=== PATIENT | female | born 1995 | race Caucasian/White ===

== ENCOUNTER 2022-01-05 22:44 | Emergency (ER) | payer OTHER, SELFPAY ==
[2022-01-05 22:47] VITALS: BP 112/80; PULSE 95; O2SAT 95
[2022-01-05 22:54] VITALS: BP 134/61; PULSE 74; RESP 18; TEMP 36.9; O2SAT 97; BMI 39.0
[2022-01-05 23:07] LABS: MANUAL DIFF FLAG NO
[2022-01-05 23:08] LABS: Basophils Percent Auto 0.5 % (0-2); Eosinophils Absolute Auto 0.4 X10*3/uL (0.0-0.4); Hematocrit 37.9 % (37.0-47.0); Imm Gran Abs Auto 0.02 X10*3/uL (0.00-0.03); Imm Gran Pct Auto 0.3 % (0.0-0.4); Lymphocytes Absolute Auto 3.2 X10*3/uL (1.2-4.9); Lymphocytes Percent Auto 41.8 % (20-40); Mean Corpuscular HGB Conc 34.3 g/dl (31.0-35.0); Mean Corpuscular Hemoglobin 31.2 pg (27.0-33.0); Mean Corpuscular Volume 90.9 fL (80.0-98.0); Mean Platelet Volume 8.9 fL (9.4-12.3); Monocytes Absolute Auto 0.6 X10*3/uL (0.1-1.2); Neutrophils Absolute Auto 3.4 x10*3/uL (2.0-8.3); Neutrophils Percent Auto 44.4 % (45-73); Platelet Count 227 X10*3/uL (160-400); Red Blood Count 4.17 X10*6/uL (4.20-5.50); Red Cell Distribution Width 12.2 % (11.0-16.0); White Blood Count 7.6 X10*3/uL (4.8-10.8)
[2022-01-05 23:14] LABS: Glucose, Whole Blood 104 mg/dL (60-115)
[2022-01-05 23:17] LABS: Appearance Urine Cloudy; Color Urine Yellow; Glucose Urine UA Negative (Negative); Leukocyte Esterase Urine Trace (Negative); Nitrite Urine Negative (Negative); PH 6.5 (5.0-8.0); Specific Gravity - Urine >= 1.030 (1.005-1.025); Urine Blood Negative (Negative); Urine Ketones Trace mg/dL (Negative); Urine Protein Negative (Neg-Trace)
[2022-01-05 23:18] LABS: UPreg QC Valid YES; Urine Pregnancy NEGATIVE (NEGATIVE)
[2022-01-05 23:26] LABS: Alanine Aminotransferase 7 U/L (0-31); Alkaline Phosphatase 63 U/L (39-117); Anion Gap 12 (12-20); Aspartate Amino Transferase 11 U/L (5-31); Bilirubin Direct < 0.2 mg/dL (0.0-0.5); Bilirubin Total 0.2 mg/dL (0.0-1.0); Blood Urea Nitrogen 16 mg/dL (9-16); Calcium 9.3 mg/dL (8.4-10.2); Carbon Dioxide 28 mmol/L (22-29); Chloride 105 mmol/L (96-108); Creatinine Clr Calc Pharmacy 132.3; Estimated Glomerular Filt Rate > 60; Glucose Random 103 mg/dL (60-115); Potassium 4.3 mmol/L (3.3-5.1); Sodium 141 mmol/L (135-145); Total Protein 6.6 g/dL (6.5-8.0)
[2022-01-05 23:31] LABS: Bacteria Urine 4+ (None Seen); Hyaline Casts Urine 0-2 /LPF (0-2); UACC Culture Trigger YES; WBC Urine 21-50 /HPF (0-5)
[2022-01-05 23:35] LABS: Amphetamine Screen Urine Not Detected (Not Detect); Barbiturates, Urine Not Detected (Not Detect); Benzodiazepines Screen Urine Not Detected (Not Detect); Cannabinoid Screen Urine Not Detected (Not Detect); Cocaine Screen Urine Not Detected (Not Detect); Fentanyl, urine Not Detected (Not Detect); Opiate Screen Urine Not Detected (Not Detect); Phencyclidine Screen Urine Not Detected (Not Detect)
[2022-01-06 03:21] VITALS: BP 140/83; PULSE 67; RESP 18; TEMP 36.6; O2SAT 96
--- NOTE | 2022-01-06 07:19 | ED_ITS ---
HPI - Female Genitourinary General Chief complaint: Urogenital-Female Stated complaint: Abd Pain Time Seen by Provider: 01/06/22 07:14 Source: patient Limitations: no limitations History of Present Illness HPI Narrative: The patient presented to the emergency department complaining of cloudy urine frequency or urgency and she is complaining also lower back pain. Denies any fever chills vomiting and diarrhea. She has a history of opioid use disorder, she is on Bactrim x2 days that she is no better. MD elicited complaint: dysuria Onset (ago): day(s) (7) Severity: moderate Female Urogenital Radiation: Non-Radiating Consistency: constant Vaginal discharge: none Vaginal bleeding: none Urinary symptoms: Dysuria, Urgency, Frequency and Foul Smelling Urine Exacerbating factors: none Relieving factors: none Related Data Previous Rx's Medication Instructions Recorded levofloxacin 500 mg tablet 500 mg PO DAILY 3 days #3 tabs 01/06/22 naproxen 500 mg tablet (Naprosyn) 500 mg PO BID PRN PAIN #20 tabs 01/06/22 Allergies Allergy/AdvReac Type Severity Reaction Status Date / Time No Known Allergies Allergy Unverified 02/03/20 18:58 [No Known Allergies*] Review of Systems Constitutional: Constitutional: Reports no additional constitutional complaints Cardiovascular: Cardiovascular: Reports no additional cardiovascular complaints Respiratory: Respiratory: Reports no additional respiratory complaints Gastrointestinal: Gastrointestinal: Denies abdominal pain Genitourinary: Genitourinary: Reports as per HPI [facility] Past Medical History [facility] Narrative: History of opioid use disorder, history of sciatica Social History Social History Advance Directives: Yes Advance Directives Information Provided: Yes Advance Directives on File: No Physical Exam Vital Signs: Vital Signs: Last Vital Signs Temp 97.9 F 01/06/22 03:21 Pulse 67 01/06/22 03:21 Resp 18 01/06/22 03:21 BP 140/83 H 01/06/22 03:21 Pulse Ox 96 01/06/22 03:21 O2 Del Method 01/06/22 03:21 BMI result Body Mass Index 39.0 Const: Other: She is no toxic-appearing she looks well General: cooperative, healthy appearing, comfortable, no acute distress, well developed, alert, awake and Physically active Nutritional Appearance: well nourished Orientation/consciousness: patient oriented x3 HEENT: Head: Yes normal to inspection Face and sinus: Yes normal facial exam Eyes: General: appearance normal, both eyes and all related structures EOM: EOMs intact bilaterally Chest: Chest palpation & inspection: normal inspection of the chest Resp: Effort & Inspection: normal respiratory effort Cardio: Jugular venous distension: no JVD Rate: regular rate Rhythm: regular rhythm GI: Inspection: Yes normal to inspection Palpation (GI): Soft to palpation, nontender and no guarding Skin: General skin exam: no rashes or lesions noted Neuro: General: patient oriented x3 MDM - Female Genitourinary MDM Narrative Medical decision making narrative: Patient is afebrile and nontoxic-appearing ; labs are normal ,she can be discharged home I will chnage Bactrim to Cipro and prescribe naproxen as well of for lower back pain.She is comfortable with the plan of care Lab Data Result diagrams: 01/05/22 23:03 01/05/22 23:03 Labs: Lab Results 01/05/22 01/05/22 01/05/22 Range/Units 22:54 23:03 23:03 WBC 7.6 (4.8-10.8) X10*3/uL RBC 4.17 L (4.20-5.50) X10*6/uL Hgb 13.0 (12.0-16.0) g/dl Hct 37.9 (37.0-47.0) % MCV 90.9 (80.0-98.0) fL MCH 31.2 (27.0-33.0) pg MCHC 34.3 (31.0-35.0) g/dl RDW 12.2 (11.0-16.0) % Plt Count 227 (160-400) X10*3/uL MPV 8.9 L (9.4-12.3) fL Immature Gran % (Auto) 0.3 (0.0-0.4) % Neut % (Auto) 44.4 L (45-73) % Lymph % (Auto) 41.8 H (20-40) % [place] % (Auto) 8.0 (2-11) % Eos % (Auto) 5.0 H (0-4) % Baso % (Auto) 0.5 (0-2) % Lymph # (Auto) 3.2 (1.2-4.9) X10*3/uL Ramsey # (Auto) 0.6 (0.1-1.2) X10*3/uL Eos # (Auto) 0.4 (0.0-0.4) X10*3/uL Baso # (Auto) 0.0 (0.0-0.2) X10*3/uL Abs Immat Gran (auto) 0.02 (0.00-0.03) X10*3/uL Absolute Neuts (auto) 3.4 (2.0-8.3) x10*3/uL Absolute Nucleated RBC 0.000 (0.0-0.012) X10*3/uL Nucleated RBC % (auto) 0.0 (0.0-0.2) /100WBC Sodium 141 (135-145) mmol/L Potassium 4.3 (3.3-5.1) mmol/L Chloride 105 (96-108) mmol/L Carbon Dioxide 28 (22-29) mmol/L Anion Gap 12 (12-20) BUN 16 (9-16) mg/dL Creatinine 0.94 (0.5-1.4) mg/dL Estim Creat Clear Calc 132.3 Estimated GFR > 60 POC Glucose 104 (60-115) mg/dL Random Glucose 103 (60-115) mg/dL Calcium 9.3 (8.4-10.2) mg/dL Total Bilirubin 0.2 (0.0-1.0) mg/dL Direct Bilirubin < 0.2 (0.0-0.5) mg/dL AST 11 (5-31) U/L ALT 7 (0-31) U/L Alkaline Phosphatase 63 (39-117) U/L Total Protein 6.6 (6.5-8.0) g/dL Albumin 4.0 (3.5-5.0) g/dL Urine Color Urine Appearance Urine pH (5.0-8.0) Ur Specific [place] (1.005-1.025) Urine Protein (Neg-Trace) mg/dL Urine Glucose (UA) (Negative) mg/dL Urine Ketones (Negative) mg/dL Urine Blood (Negative) Urine Nitrite (Negative) Ur Leukocyte Esterase (Negative) Urine RBC (0-2) /HPF Urine WBC (0-5) /HPF Ur Squamous Epith Cells (0-2) /HPF Urine Bacteria (None Seen) Hyaline Casts (0-2) /LPF Urine Test (NEGATIVE) Urine Opiates Screen (Not Detect) Urine Fentanyl Screen (Not Detect) Ur Barbiturates Screen (Not Detect) Ur Phencyclidine Scrn (Not Detect) Ur Amphetamines Screen (Not Detect) U Benzodiazepines Scrn (Not Detect) Urine Cocaine Screen (Not Detect) U Marijuana (THC) Screen (Not Detect) 01/05/22 01/05/22 01/05/22 Range/Units 23:10 23:10 23:10 WBC (4.8-10.8) X10*3/uL RBC (4.20-5.50) X10*6/uL Hgb (12.0-16.0) g/dl Hct (37.0-47.0) % MCV (80.0-98.0) fL MCH (27.0-33.0) pg MCHC (31.0-35.0) g/dl RDW (11.0-16.0) % Plt Count (160-400) X10*3/uL MPV (9.4-12.3) fL Immature Gran % (Auto) (0.0-0.4) % Neut % (Auto) (45-73) % Lymph % (Auto) (20-40) % Ramsey % (Auto) (2-11) % Eos % (Auto) (0-4) % Baso % (Auto) (0-2) % Lymph # (Auto) (1.2-4.9) X10*3/uL [place] # (Auto) (0.1-1.2) X10*3/uL Eos # (Auto) (0.0-0.4) X10*3/uL Baso # (Auto) (0.0-0.2) X10*3/uL Abs Immat Gran (auto) (0.00-0.03) X10*3/uL Absolute Neuts (auto) (2.0-8.3) x10*3/uL Absolute Nucleated RBC (0.0-0.012) X10*3/uL Nucleated RBC % (auto) (0.0-0.2) /100WBC Sodium (135-145) mmol/L Potassium (3.3-5.1) mmol/L Chloride (96-108) mmol/L Carbon Dioxide (22-29) mmol/L Anion Gap (12-20) BUN (9-16) mg/dL Creatinine (0.5-1.4) mg/dL Estim Creat Clear Calc Estimated GFR POC Glucose (60-115) mg/dL Random Glucose (60-115) mg/dL Calcium (8.4-10.2) mg/dL Total Bilirubin (0.0-1.0) mg/dL Direct Bilirubin (0.0-0.5) mg/dL AST (5-31) U/L ALT (0-31) U/L Alkaline Phosphatase (39-117) U/L Total Protein (6.5-8.0) g/dL Albumin (3.5-5.0) g/dL Urine Color Yellow Urine Appearance Cloudy Urine pH 6.5 (5.0-8.0) Ur Specific [place] >= 1.030 H (1.005-1.025) Urine Protein Negative (Neg-Trace) mg/dL Urine Glucose (UA) Negative (Negative) mg/dL Urine Ketones Trace (Negative) mg/dL Urine Blood Negative (Negative) Urine Nitrite Negative (Negative) Ur Leukocyte Esterase Trace H (Negative) Urine RBC 11-20 H (0-2) /HPF Urine WBC 21-50 H (0-5) /HPF Ur Squamous Epith Cells 6-10 (0-2) /HPF Urine Bacteria 4+ (None Seen) Hyaline Casts 0-2 (0-2) /LPF Urine Test NEGATIVE (NEGATIVE) Urine Opiates Screen Not Detected (Not Detect) Urine Fentanyl Screen Not Detected (Not Detect) Ur Barbiturates Screen Not Detected (Not Detect) Ur Phencyclidine Scrn Not Detected (Not Detect) Ur Amphetamines Screen Not Detected (Not Detect) U Benzodiazepines Scrn Not Detected (Not Detect) Urine Cocaine Screen Not Detected (Not Detect) U Marijuana (THC) Screen Not Detected (Not Detect) Discharge Plan Discharge Clinical Impression: Urinary tract infection Patient Disposition: Home, Self-Care Instructions: Urinary Tract Infection in Women (ED) Prescriptions: New levofloxacin 500 mg tablet 500 mg PO DAILY 3 Days Qty: 3 0RF naproxen [Naprosyn] 500 mg tablet 500 mg PO BID PRN (Reason: PAIN) Qty: 20 0RF Interventions: ED Discharge Assessment Last Done: 01/06/22 07:37 Discharge Date/Time: 01/06/22 07:38
== END 2022-01-06 07:38 | disposition home or self-care (01) ==
PROVIDERS: Emergency Provider Emergency Medicine; PCP Internal Medicine
DX: N39.0 Urinary tract infection, site not specified (principal); Z79.899 Other long term (current) drug therapy
CPT/HCPCS: 36415; 80053; 80307; 81001; 81025; 82248; 82947; 85025; 87086; 99283

== ENCOUNTER 2022-01-08 17:57 | Emergency (ER) | payer OTHER, SELFPAY ==
[2022-01-08 19:43] VITALS: BP 127/71; PULSE 80; RESP 17; TEMP 36.4; O2SAT 97; BMI 41.5
[2022-01-08 23:42] LABS: Appearance Urine Clear; Color Urine Yellow; Glucose Urine UA Negative (Negative); Leukocyte Esterase Urine Negative (Negative); Nitrite Urine Negative (Negative); Specific Gravity - Urine 1.025 (1.005-1.025); Urine Blood Negative (Negative); Urine Ketones Trace mg/dL (Negative); Urine Protein Trace mg/dL (Neg-Trace)
[2022-01-08 23:45] LABS: UPreg QC Valid YES; Urine Pregnancy NEGATIVE (NEGATIVE)
[2022-01-09] VITALS: BP 146/72; PULSE 82; RESP 19; O2SAT 98
--- NOTE | 2022-01-09 00:24 | ED_ITS ---
HPI - Recheck/Abnormal Lab/Rx General Chief Complaint: Recheck/Abnormal Lab/Rx Stated Complaint: elevated [place] Time Seen by Provider: 01/08/22 21:17 Source: patient Mode of arrival: ambulatory Limitations: no limitations History of Present Illness HPI narrative: 26 yo female with history of bipolar disorder who has been on lithium for almost a year now seeking lithium level testing. Patient tells me her dose was increased 1 month ago to 300 mg twice daily by her psychiatrist. She tells me that she has not had her level checked in quite some time. Since the increase in her dose she has been feeling shaky and states I do not feel right. she tells me she spoke to her psychiatrist and they recommended she come in for lithium level test. She denies any suicidal or homicidal ideations. No hallucinations. She is also having some urinary frequency. No dysuria, pelvic pain, vaginal discharge, abdominal pain, back pain, nausea, vomiting, fever. Patient tells me she does have history of UTIs. She is sexually active with 1 partner and she is not concern for any STDs and would not like to be tested Related Data Previous Rx's Medication Instructions Recorded levofloxacin 500 mg tablet 500 mg PO DAILY 3 days #3 tabs 01/06/22 naproxen 500 mg tablet (Naprosyn) 500 mg PO BID PRN PAIN #20 tabs 01/06/22 Allergies Allergy/AdvReac Type Severity Reaction Status Date / Time No Known Allergies Allergy Verified 01/08/22 19:43 [No Known Allergies*] Review of Systems Review of Systems: Yes all other systems are reviewed and are negative Constitutional: Constitutional: Reports no additional constitutional complaints, Denies body ache(s), Denies chills, Denies fever(s), Denies headache(s) and Denies weakness Eyes: Eyes: Reports no additional eye complaints and Denies change in vision ENT: Reports system reviewed and no additional complaints, except as documented, Denies dizziness, Denies headache(s), Denies nasal congestion, Denies nasal discharge and Denies neck pain Cardiovascular: Cardiovascular: Reports no additional cardiovascular complaints, Denies chest pain, Denies leg edema and Denies dyspnea Respiratory: Respiratory: Reports no additional respiratory complaints, Denies cough and Denies dyspnea Gastrointestinal: Gastrointestinal: Reports no additional gastrointestinal complaints, Denies abdominal pain, Denies diarrhea, Denies nausea and Denies vomiting Genitourinary: Genitourinary: Reports no additional female genitourinary complaints, Denies dysuria, Denies flank pain, Denies urinary incontinence, Denies urinary hesitancy, Denies urinary urgency and Denies vaginal discharge Comments: +urinary frequency Musculoskeletal: Musculoskeletal: Reports no additional musculoskeletal complaints, Denies back pain, Denies arthralgias, Denies joint swelling, Denies neck pain, Denies numbness and Denies tingling Integumentary/Breasts: Skin/Breast: Reports system reviewed and no additional complaints, except as docu and Denies rash Neurologic: Reports system reviewed and no additional complaints, except as documented, Denies Abnormal speech present, Denies dizziness, Denies headache(s), Denies numbness, Denies tingling and Denies weakness PMFSH Past Medical History Attestation statement: The following information was validated with the patient. Source: old records reviewed and nursing notes reviewed Social History Social History Advance Directives: No Advance Directives Information Provided: Yes Physical Exam Vital Signs: Vital Signs: Last Vital Signs Temp 97.6 F 01/08/22 19:43 Pulse 82 01/09/22 00:00 Resp 19 01/09/22 00:00 BP 146/72 H 01/09/22 00:00 Pulse Ox 98 01/09/22 00:00 O2 Del Method 01/09/22 00:00 BMI result Body Mass Index 41.5 Const: General: cooperative, healthy appearing, comfortable and no acute distress Orientation/consciousness: patient oriented x3 Limitations: no limitations HEENT: Head: Yes normal to inspection Ears: hearing grossly normal bilater ally General nose exam: Normal external nose present Face and sinus: Yes normal facial exam Mouth: Normal oral and palatal mucosa present Throat: Yes posterior oropharynx normal Eyes: General: appearance normal, both eyes and all related structures Pupils: Equal, round and reactive pupils present Neck: Neck: Yes normal visual inspection Chest: Chest palpation & inspection: normal inspection of the chest Resp: Effort & Inspection: normal respiratory effort Auscultation: clear to auscultation bilaterally Cardio: Rate: regular rate Rhythm: regular rhythm Peripheral pulses: Peripheral pulses 2+ throughout GI: Inspection: Yes normal to inspection Palpation (GI): Soft to palpation and nontender Auscultation: normal bowel sounds Back/Spine/Pelvis: Thoracic/Lumbar Spine: thoracic and lumbar spine normal to inspection Skin: General skin exam: no rashes or lesions noted Neuro: General: patient oriented x3, no focal motor deficits and normal sensation to monofilament Cranial nerves: Yes Equal, round and reactive pupils present Cognition (Neuro): normal cognition Speech: No Abnormal speech present Gait exam (Neuro): Normal gait present Motor exam (neuro): 5/5 motor strength present throughout Extrem: General: Yes normal to inspection Course Course Course Narrative: UA shows no signs of infection, ketones or glucose. I did offer STD testing to the patient as well as testing for common vaginal infections including yeast and BV but she declined this. I am not sure why she is having frequent urination. [place] level is 0.45 which is low and not high. I did explain this to the patient and she can follow-up with her outpatient prescriber. MDM - Recheck/Abnormal Lab/Rx MDM Narrative Medical decision making narrative: 26-year-old female here seeking lithium level check after a med dose increased in the last month with complaints of feeling shaky and not right . also complaining of urinary frequency with no dysuria, pelvic pain, vaginal discharge, fevers or vomiting with no concern for STD exposure and does not want testing. Will check lithium level, UA Medical Records Attestation: I reviewed the patient's medical records. Lab Data Attestation: I reviewed the patient's lab results. Labs: Lab Results 01/08/22 01/08/22 01/08/22 Range/Units 23:34 23:34 23:34 Urine Color Yellow Urine Appearance Clear Urine pH 7.0 (5.0-8.0) Ur Specific [place] 1.025 (1.005-1.025) Urine Protein Trace (Neg-Trace) mg/dL Urine Glucose (UA) Negative (Negative) mg/dL Urine Ketones Trace (Negative) mg/dL Urine Blood Negative (Negative) Urine Nitrite Negative (Negative) Ur Leukocyte Esterase Negative (Negative) Urine Test NEGATIVE (NEGATIVE) [place] 0.45 L (0.60-1.20) mmol/L Discharge Plan Discharge Clinical Impression: Encounter for medical screening examination, Urinary frequency Patient Disposition: Home, Self-Care Instructions: [place] (By mouth), Polyuria (ED) Additional Instructions: [place] level is 0.45. this is low. talk to your prescriber tomorrow Prescriptions: No Action levofloxacin 500 mg tablet 500 mg PO DAILY 3 Days Qty: 3 0RF naproxen [Naprosyn] 500 mg tablet 500 mg PO BID PRN (Reason: PAIN) Qty: 20 0RF Referrals: [place] Joe MD [Primary Care Provider] - 1 week
[2022-01-09 00:46] LABS: Lithium 0.45 mmol/L (0.60-1.20)
--- NOTE | 2022-01-09 01:13 | PC.NURSE ---
pt provided with discharge packet at time of discharge. pt demonstrated drowsiness. patient verbalized understanding of discharge plan
== END 2022-01-09 01:25 | disposition home or self-care (01) ==
PROVIDERS: Nurse Practitioner Family; Emergency Provider Emergency Medicine; PCP Internal Medicine
DX: R35.0 Frequency of micturition (principal); R79.89 Other specified abnormal findings of blood chemistry; Z79.899 Other long term (current) drug therapy
CPT/HCPCS: 36415; 80178; 81003; 81025; 99283; 99284

== ENCOUNTER 2022-04-14 19:55 | Inpatient (IN) | payer OTHER, SELFPAY ==
[2022-04-14 20:00] VITALS: BP 116/66; BP 128/66; PULSE 89; PULSE 98; RESP 16; TEMP 37.1; O2SAT 96; O2SAT 99; BMI 32.1
--- NOTE | 2022-04-14 20:15 | ED.PSYCH ---
HPI - Psych General Chief Complaint: Psychiatric Symptoms Stated Complaint: Depression Time Seen by Provider: 04/14/22 20:13 Source: patient Mode of arrival: ambulatory Limitations: no limitations History of Present Illness HPI Narrative: Will feel depressed for over a month does not want to live anymore no specific plan no HI no delusions or hallucinations, withdrawal from friends and family has poor sleep no history of substance abuse no recent family even Related Data Home Medications Medication Instructions Recorded Confirmed buprenorphine 100 mg/0.5 mL 100 mg subcut QWEEK 04/14/22 04/14/22 solution,exten.rel.subcutaneous syringe (Sublocade) buspirone 15 mg tablet 1 tab PO TID 04/14/22 04/14/22 clonidine HCl 0.1 mg tablet 1 tab PO BID 04/14/22 04/14/22 gabapentin 300 mg capsule 1 cap PO BID 04/14/22 04/14/22 lithium carbonate 300 mg capsule 1 cap PO QAM 04/14/22 04/14/22 lithium carbonate 600 mg capsule 1 cap PO BEDTIME 04/14/22 04/14/22 olanzapine 2.5 mg tablet 1 tab PO BEDTIME 04/14/22 04/14/22 propranolol 40 mg tablet 1 tab PO BID 04/14/22 04/14/22 Allergies Allergy/AdvReac Type Severity Reaction Status Date / Time No Known Allergies Allergy Verified 01/08/22 19:43 [No Known Allergies*] Review of Systems Review of Systems: Yes all other systems are reviewed and are negative [facility] Social History Social History Alcohol intake: never Patient Tobacco Use Status: Current everyday Tobacco user Advance Directives: No Advance Directives Information Provided: No Guardian: No Physical Exam Vital Signs: Vital Signs: Last Vital Signs Temp 97.5 F 04/14/22 23:02 Pulse 73 04/14/22 23:02 Resp 16 04/14/22 23:02 BP 145/73 H 04/14/22 23:02 Pulse Ox 97 04/14/22 23:02 O2 Del Method 04/14/22 23:02 BMI result Body Mass Index 32.1 Appearance: Alert. Oriented X3. No acute distress. Eyes: PERRLA, No Nystagmus ENT: Pharynx normal. Oral Mucosa moist Neck: Normal inspection. Neck supple. CVS: Normal heart rate and rhythm. Pulses normal. Respiratory: No respiratory distress. Equal air entry bilateral, no wheezing/rales/rhonchi Abdomen: Soft and nontender. Bowel sounds are present, no mass palpable, no CVA tenderness Skin: Skin warm and dry. Normal skin color. Normal skin turgor. Extremities: No lower extremity edema. No calf tenderness Psych: Depressed mood no current SI/HI no hallucinations or delusions Neuro: Oriented X 3. No motor deficit. No sensory deficit.No cerebellar signs , cranial nerves II-XII intact Medications Administered Discontinued Medications Generic Name Dose Route Start Last Admin Trade Name Freq PRN Reason Stop Dose Admin Lorazepam 2 mg 04/14/22 20:55 04/14/22 20:57 Lorazepam 1 Mg Tablet PO 04/14/22 20:56 2 mg ONCE ONE Administration Nicotine 21 mg 04/14/22 21:18 04/14/22 21:21 Nicotine 21 Mg Patch.Td24 TRANSDERMA 04/14/22 21:19 21 mg ONCE ONE Administration MDM - Psych Differential Diagnosis Differential diagnosis: Likely depression Lab Data Attestation: I reviewed the patient's lab results. Result diagrams: 04/14/22 21:02 04/14/22 21:02 Labs: Lab Results 04/14/22 04/14/22 04/14/22 Range/Units 20:50 20:50 20:50 WBC (4.8-10.8) X10*3/uL RBC (4.20-5.50) X10*6/uL Hgb (12.0-16.0) g/dl Hct (37.0-47.0) % MCV (80.0-98.0) fL MCH (27.0-33.0) pg MCHC (31.0-35.0) g/dl RDW (11.0-16.0) % Plt Count (160-400) X10*3/uL MPV (9.4-12.3) fL Immature Gran % (Auto) (0.0-0.4) % Neut % (Auto) (45-73) % Lymph % (Auto) (20-40) % [place] % (Auto) (2-11) % Eos % (Auto) (0-4) % Baso % (Auto) (0-2) % Lymph # (Auto) (1.2-4.9) X10*3/uL [place] # (Auto) (0.1-1.2) X10*3/uL Eos # (Auto) (0.0-0.4) X10*3/uL Baso # (Auto) (0.0-0.2) X10*3/uL Abs Immat Gran (auto) (0.00-0.03) X10*3/uL Absolute Neuts (auto) (2.0-8.3) x10*3/uL Absolute Nucleated RBC (0.0-0.012) X10*3/uL Nucleated RBC % (auto) (0.0-0.2) /100WBC Sodium (135-145) mmol/L Potassium (3.3-5.1) mmol/L Chloride (96-108) mmol/L Carbon Dioxide (22-29) mmol/L Anion Gap (12-20) BUN (9-16) mg/dL Creatinine (0.5-1.4) mg/dL Estim Creat Clear Calc Estimated GFR Random Glucose (60-115) mg/dL Calcium (8.4-10.2) mg/dL Total Bilirubin (0.0-1.0) mg/dL AST (5-31) U/L ALT (0-31) U/L Alkaline Phosphatase (39-117) U/L Total Protein (6.5-8.0) g/dL Albumin (3.5-5.0) g/dL Urine Color Yellow Urine Appearance Clear Urine pH 7.0 (5.0-9.0) Ur Specific [place] 1.020 (1.005-1.025) Urine Protein Negative (Neg-Trace) mg/dL Urine Glucose (UA) Negative (Negative) mg/dL Urine Ketones Negative (Negative) mg/dL Urine Blood Negative (Negative) Urine Nitrite Negative (Negative) Ur Leukocyte Esterase Trace H (Negative) Urine RBC 11-20 H (0-2) /HPF Urine WBC 11-20 H (0-5) /HPF Ur Squamous Epith Cells 6-10 (0-2) /HPF Urine Bacteria 3+ (None Seen) Hyaline Casts 0-2 (0-2) /LPF Urine Test (NEGATIVE) Salicylates (15-30) mg/dL Urine Opiates Screen Not Detected (Not Detect) Urine Fentanyl Screen Not Detected (Not Detect) Acetaminophen (<30) mcg/mL Ur Barbiturates Screen Not Detected (Not Detect) Ur Phencyclidine Scrn Not Detected (Not Detect) Ur Amphetamines Screen Not Detected (Not Detect) U Benzodiazepines Scrn Not Detected (Not Detect) [place] (0.60-1.20) mmol/L Urine Cocaine Screen Not Detected (Not Detect) U Marijuana (THC) Screen Not Detected (Not Detect) Ethyl Alcohol mg/dL Influenza Type A (PCR) NEGATIVE (Negative) Influenza Type B (PCR) NEGATIVE (Negative) RSV RNA Qual (PCR) NEGATIVE (Negative) SARS-CoV-2 RNA (RT-PCR) NEGATIVE (Negative) 04/14/22 04/14/22 04/14/22 Range/Units 20:50 21:02 21:02 WBC 8.5 (4.8-10.8) X10*3/uL RBC 4.72 (4.20-5.50) X10*6/uL Hgb 13.9 (12.0-16.0) g/dl Hct 41.6 (37.0-47.0) % MCV 88.1 (80.0-98.0) fL MCH 29.4 (27.0-33.0) pg MCHC 33.4 (31.0-35.0) g/dl RDW 11.9 (11.0-16.0) % Plt Count 236 (160-400) X10*3/uL MPV 9.2 L (9.4-12.3) fL Immature Gran % (Auto) 0.2 (0.0-0.4) % Neut % (Auto) 69.3 (45-73) % Lymph % (Auto) 22.5 (20-40) % [place] % (Auto) 6.7 (2-11) % Eos % (Auto) 1.1 (0-4) % Baso % (Auto) 0.2 (0-2) % Lymph # (Auto) 1.9 (1.2-4.9) X10*3/uL [place] # (Auto) 0.6 (0.1-1.2) X10*3/uL Eos # (Auto) 0.1 (0.0-0.4) X10*3/uL Baso # (Auto) 0.0 (0.0-0.2) X10*3/uL Abs Immat Gran (auto) 0.02 (0.00-0.03) X10*3/uL Absolute Neuts (auto) 5.9 (2.0-8.3) x10*3/uL Absolute Nucleated RBC 0.000 (0.0-0.012) X10*3/uL Nucleated RBC % (auto) 0.0 (0.0-0.2) /100WBC Sodium 143 (135-145) mmol/L Potassium 4.4 (3.3-5.1) mmol/L Chloride 105 (96-108) mmol/L Carbon Dioxide 30 H (22-29) mmol/L Anion Gap 12 (12-20) BUN 14 (9-16) mg/dL Creatinine 0.77 (0.5-1.4) mg/dL Estim Creat Clear Calc 145.9 Estimated GFR > 60 Random Glucose 92 (60-115) mg/dL Calcium 9.7 (8.4-10.2) mg/dL Total Bilirubin 0.5 (0.0-1.0) mg/dL AST 12 (5-31) U/L ALT 11 (0-31) U/L Alkaline Phosphatase 61 (39-117) U/L Total Protein 6.8 (6.5-8.0) g/dL Albumin 4.2 (3.5-5.0) g/dL Urine Color Urine Appearance Urine pH (5.0-9.0) Ur Specific [place] (1.005-1.025) Urine Protein (Neg-Trace) mg/dL Urine Glucose (UA) (Negative) mg/dL Urine Ketones (Negative) mg/dL Urine Blood (Negative) Urine Nitrite (Negative) Ur Leukocyte Esterase (Negative) Urine RBC (0-2) /HPF Urine WBC (0-5) /HPF Ur Squamous Epith Cells (0-2) /HPF Urine Bacteria (None Seen) Hyaline Casts (0-2) /LPF Urine Test NEGATIVE (NEGATIVE) Salicylates (15-30) mg/dL Urine Opiates Screen (Not Detect) Urine Fentanyl Screen (Not Detect) Acetaminophen (<30) mcg/mL Ur Barbiturates Screen (Not Detect) Ur Phencyclidine Scrn (Not Detect) Ur Amphetamines Screen (Not Detect) U Benzodiazepines Scrn (Not Detect) [place] (0.60-1.20) mmol/L Urine Cocaine Screen (Not Detect) U Marijuana (THC) Screen (Not Detect) Ethyl Alcohol mg/dL Influenza Type A (PCR) (Negative) Influenza Type B (PCR) (Negative) RSV RNA Qual (PCR) (Negative) SARS-CoV-2 RNA (RT-PCR) (Negative) 04/14/22 04/14/22 Range/Units 21:02 21:02 WBC (4.8-10.8) X10*3/uL RBC (4.20-5.50) X10*6/uL Hgb (12.0-16.0) g/dl Hct (37.0-47.0) % MCV (80.0-98.0) fL MCH (27.0-33.0) pg MCHC (31.0-35.0) g/dl RDW (11.0-16.0) % Plt Count (160-400) X10*3/uL MPV (9.4-12.3) fL Immature Gran % (Auto) (0.0-0.4) % Neut % (Auto) (45-73) % Lymph % (Auto) (20-40) % [place] % (Auto) (2-11) % Eos % (Auto) (0-4) % Baso % (Auto) (0-2) % Lymph # (Auto) (1.2-4.9) X10*3/uL [place] # (Auto) (0.1-1.2) X10*3/uL Eos # (Auto) (0.0-0.4) X10*3/uL Baso # (Auto) (0.0-0.2) X10*3/uL Abs Immat Gran (auto) (0.00-0.03) X10*3/uL Absolute Neuts (auto) (2.0-8.3) x10*3/uL Absolute Nucleated RBC (0.0-0.012) X10*3/uL Nucleated RBC % (auto) (0.0-0.2) /100WBC Sodium (135-145) mmol/L Potassium (3.3-5.1) mmol/L Chloride (96-108) mmol/L Carbon Dioxide (22-29) mmol/L Anion Gap (12-20) BUN (9-16) mg/dL Creatinine (0.5-1.4) mg/dL Estim Creat Clear Calc Estimated GFR Random Glucose (60-115) mg/dL Calcium (8.4-10.2) mg/dL Total Bilirubin (0.0-1.0) mg/dL AST (5-31) U/L ALT (0-31) U/L Alkaline Phosphatase (39-117) U/L Total Protein (6.5-8.0) g/dL Albumin (3.5-5.0) g/dL Urine Color Urine Appearance Urine pH (5.0-9.0) Ur Specific [place] (1.005-1.025) Urine Protein (Neg-Trace) mg/dL Urine Glucose (UA) (Negative) mg/dL Urine Ketones (Negative) mg/dL Urine Blood (Negative) Urine Nitrite (Negative) Ur Leukocyte Esterase (Negative) Urine RBC (0-2) /HPF Urine WBC (0-5) /HPF Ur Squamous Epith Cells (0-2) /HPF Urine Bacteria (None Seen) Hyaline Casts (0-2) /LPF Urine Test (NEGATIVE) Salicylates < 5.0 L (15-30) mg/dL Urine Opiates Screen (Not Detect) Urine Fentanyl Screen (Not Detect) Acetaminophen < 1 (<30) mcg/mL Ur Barbiturates Screen (Not Detect) Ur Phencyclidine Scrn (Not Detect) Ur Amphetamines Screen (Not Detect) U Benzodiazepines Scrn (Not Detect) [place] 0.72 (0.60-1.20) mmol/L Urine Cocaine Screen (Not Detect) U Marijuana (THC) Screen (Not Detect) Ethyl Alcohol < 10 mg/dL Influenza Type A (PCR) (Negative) Influenza Type B (PCR) (Negative) RSV RNA Qual (PCR) (Negative) SARS-CoV-2 RNA (RT-PCR) (Negative) Discharge Plan Discharge Clinical Impression: Depression Patient Disposition: Still a Patient Prescriptions: No Action Sublocade 100 mg/0.5 mL solution, extended rel syringe 100 mg subcut QWEEK clonidine HCl 0.1 mg tablet 1 tab PO BID olanzapine 2.5 mg tablet 1 tab PO BEDTIME propranolol 40 mg tablet 1 tab PO BID lithium carbonate 600 mg capsule 1 cap PO BEDTIME lithium carbonate 300 mg capsule 1 cap PO QAM gabapentin 300 mg capsule 1 cap PO BID buspirone 15 mg tablet 1 tab PO TID Interventions: [place]-Suicide Risk Severity Scale Last Done: 04/14/22 20:41
--- OUTSIDE RECORDS SUMMARY | 2022-04-14 20:24 | XMS_ITS | Continuity of Care Document ---
:1995 Author Organization [facility] Address [address] [place] [address]- Care Team Providers Name Role Phone Maine Joe MD Primary Care Physician [phone] Encounter [facility] Date(s): 08/20/20 - 08/20/[address] [address]- Discharge Disposition: A-D/C Home Attending Physician: Raciel Yeung MD Admitting Physician: Raciel Yeung MD Referring Physician: Not on Staff, Referring MD Allergies, Adverse Reactions, Alerts Substance Reaction Severity Status NKA Active Immunizations Given and Recorded Vaccine Date Status Refusal Reason influenza virus vaccine, inactivated 03/01/11 Given Menactra (oldterm)1 02/28/09 Given Human Papillomavirus Vaccine 10/20/06 Given 1Admin Note: VIS given Medications albuterol CFC free 90 mcg/inh inhalation aerosol 2, puffs, Inhalation, 4 times a day, PRN, # 25 Gm, Refills 0, Tot. Refills 0, Maintenance, 10/27/17 17:54:17 EDT, Aerosol, Print Requisition, Compound Start Date: 10/27/17 Status: OrderedMethadone = 100 mg, By Mouth, Daily in AM, 80 mg daily per Habit Outcome, 0 Refills, Maintenance, 07/01/17 12:27:44 EST Start Date: 07/01/17 Status: Orderedmethadone 10 mg oral tablet 70 mg, Tablet, By Mouth, Once, Dose confirmed with outpatient provider, Routine, 08/20/20 16:00:00 EDT, Stop date 08/20/20 16:00:00 EDT Start Date: 08/20/20 Stop Date: 08/20/20 Status: Completed Problem List Condition Effective Dates Status Health Status Informant Bipolar I disorder, current or most Active recent episode depressed, in partial remission with mood-congruent psychotic features(Confirmed) Cocaine abuse(Confirmed) Active Long-term current use of methadone for Active opiate dependence(Confirmed) Obesity(Confirmed) Active Opiate dependence(Confirmed) Active Vital Signs Most recent to oldest [Reference Range]: 1 2 Height 183 cm (08/20/20 2:03 PM) Weight 142.3 kg (08/20/20 2:03 PM) Oxygen Saturation [94-100 %] 97 % (08/20/20 2:03 PM) Pulse Rate [55-90 bpm] 92 bpm *H* (08/20/20 2:03 PM) Blood Pressure [90-138/55-84 mm Hg] 149/91 mm Hg *H* (08/20/20 2:03 PM) Respiratory Rate [16-30 br/min] 14 br/min 16 br/mi n *L* (08/20/20 2:03 PM) (08/20/20 3:44 PM) Temperature [96.8-100.4 DegF] 97.6 DegF (08/20/20 2:03 PM) Mode of Delivery (Oxygen) Room air (08/20/20 2:03 PM) Blood pressure sites Arm, left (08/20/20 2:03 PM) Temperature Route Temporal (08/20/20 2:03 PM) Dry Weight 142.3 kg (08/20/20 2:03 PM) Social History Social History Type Response Smoking Status Current every day smoker; Ot her: 1 PPD; entered on: 12/28/16 Sex
--- OUTSIDE RECORDS SUMMARY | 2022-04-14 20:24 | XMS_ITS | Continuity of Care Document ---
:1995 Author Organization [facility] Address [address] [place] [address]- Care Team Providers Name Role Phone Maine Joe MD Primary Care Physician Encounter [facility] Date(s): 07/18/19 - 07/18/[address] [address]- [facility] Discharge Disposition: A-D/C Home Attending Physician: Aria Hunter MD Admitting Physician: Aria Hunter MD Referring Physician: Not on Staff, Referring [...] Print Requisition, Compound Start Date: 10/27/17 Status: Orderedibuprofen 600 mg oral tablet 600 mg, 1, tablet, By Mouth, 3 times a day, Refills 0, Maintenance, 07/01/17 12:27:17 Start Date: 07/01/17 Status: OrderedMethadone By Mouth, 80 mg daily per Habit Outcome, 0 Refills, Maintenance, 07/01/17 12:27:44 EST Start Date: 07/01/17 Status: OrderedVitamin B12 Intramuscular, IM monthly, 0 Refills, Maintenance, 09/23/17 12:02:30 EDT Start Date: 09/23/17 Status: Ordered Problem List Condition Effective Dates Status Health Status Informant Bipolar I disorder, current or most Active recent episode depressed, in partial remission with mood-congruent psychotic features(Confirmed) Cocaine abuse(Confirmed) Active Long-term current use of methadone for Active opiate dependence(Confirmed) Obesity(Confirmed) Active Opiate dependence(Confirmed) Active Vital Signs Most recent to oldest [Reference Range]: 1 Height 183 cm (07/18/19 7:10 PM) Weight 150 kg (07/18/19 7:10 PM) Oxygen Saturation [94-100 %] 96 % (07/18/19 7:10 PM) Pulse Rate [55-90 bpm] 95 bpm *H* (07/18/19 7:10 PM) Blood Pressure [90-138/55-84 mm Hg] 137/82 mm Hg (07/18/19 7:10 PM) Respiratory Rate [16-30 br/min] 19 br/min (07/18/19 7:10 PM) Temperature [96.8-100.4 DegF] 98.3 DegF (07/18/19 7:10 PM) Mode of Delivery (Oxygen) Room air (07/18/19 7:10 PM) Blood pressure sites Arm, right (07/18/19 7:10 PM) Temperature Route Oral (07/18/19 7:10 PM) Dry Weight 150 kg (07/18/19 7:10 PM) Weight Obtained Via Patient/family stated (07/18/19 7:10 PM) Dry Weight Obtained Via Patient/family stated (07/18/19 7:10 PM) Social History Social History Type Response Smoking Status Current every day smoker; Ot her: 1 PPD; entered on: 12/28/16 Sex
--- OUTSIDE RECORDS SUMMARY | 2022-04-14 20:24 | XMS_ITS | Continuity of Care Document ---
:1995 Author Organization [facility] Address [address] [place] [id number]- Care Team Providers Name Role Phone Maine Joe MD Primary Care Physician Encounter [facility] Date(s): 08/18/20 - 08/18/[address] [address]- Encounter Diagnosis Opiate overdose (Final) - 08/18/20 Discharge Disposition: A-D/C Home Attending Physician: Andriy Angel DO Admitting Physician: Andriy Angel DO Referring Physician: Not on Staff, Referring MD [...] 07/01/17 12:27:44 EST Start Date: 07/01/17 Status: Ordered Problem List Condition Effective Dates Status Health Status Informant Bipolar I disorder, current or most Active recent episode depressed, in partial remission with mood-congruent psychotic features(Confirmed) Cocaine abuse(Confirmed) Active Long-term current use of methadone for Active opiate dependence(Confirmed) Obesity(Confirmed) Active Opiate dependence(Confirmed) Active Vital Signs Most recent to oldest 1 2 3 [Reference Range]: Oxygen Saturation [94-100 %] 100 % 100 % 100 % (08/18/20 1:03 PM) (08/18/20 11:59 AM) (08/18/20 11:50 AM) Pulse Rate [55-90 bpm] 64 bpm 73 bpm 66 bpm (08/18/20 1:03 PM) (08/18/20 11:59 AM) (08/18/20 11:50 AM) Blood Pressure [90-138/55-84 mm 121/71 mm Hg 149/103 mm Hg Hg] (08/18/20 1:03 PM) *H* (08/18/20 11:59 AM) Respiratory Rate [16-30 br/min] 15 br/min 11 br/min 12 br/min *L* *L* *L* (08/18/20 1:03 PM) (08/18/20 11:59 AM) (08/18/20 11:50 AM) Temperature [96.8-100.4 DegF] 97.3 DegF (08/18/20 11:59 AM) Mode of Delivery (Oxygen) Room air Room air Room a ir (08/18/20 1:03 PM) (08/18/20 11:59 AM) (08/18/20 11:50 AM) Blood pressure sites Arm, right Arm, right (08/18/20 1:03 PM) (08/18/20 11:59 AM) Temperature Route Oral (08/18/20 11:59 AM) Social History Social History Type Response Smoking Status Current every day smoker; Ot her: 1 PPD; entered on: 12/28/16 Sex
--- OUTSIDE RECORDS SUMMARY | 2022-04-14 20:24 | XMS_ITS | Continuity of Care Document ---
:1995 Author Organization [facility] Address [address] [place] [address]- Care Team Providers Name Role Phone Heath THOMPSON, Maine Weller Primary Care Physician Encounter [facility] Date(s): 02/13/21 - 02/14/[address] [address] Discharge Disposition: A-D/C Home Attending Physician: Augustus Madison DO Admitting Physician: Calvin Cadet MD Referring Physician: Kayley Dodson MD Allergies, Adverse Reactions, Alerts Substance Reaction Severity Status NKA Active Immunizations Given and Recorded Vaccine Date Status Refusal Reason influenza virus vaccine, inactivated 03/01/11 Given Menactra (oldterm)1 02/28/09 Given Human Papillomavirus Vaccine 10/20/06 Given 1Admin Note: VIS given Medications benztropine 0.5 mg oral tablet 0.5 mg, 1, tablet, By Mouth, 2 times a day, # 60 tablet, Refills 0, Tot. Refills 0, Maintenance, 02/14/21 14:32:00 EDT, Route to Pharmacy Electronically, [facility]/pharmacy #[id number], Partial fill upon patient request if the prescription is for a schedule II op... Start Date: 02/14/21 Status: OrderedbusPIRone 30 mg oral tablet 1 tablet = 30 mg, By Mouth, 2 times a day, # 60 tablet, 1 Refills, Maintenance, 02/14/21 14:32:00 EDT, Tablet, [facility]/pharmacy #[id number], 180, cm, 02/14/21 4:28:00 EDT, Height, 170, kg, 02/13/21 11:44:00 EDT,Dry Weight Start Date: 02/14/21 Stop Date: 04/15/21 Status: OrderedcloNIDine 0.1 mg oral tablet 0.1 mg, 1, tablet, By Mouth, 2 times a day, # 60 tablet, Refills 1, Tot. Refills 1, Maintenance, 02/14/21 14:33:00 EDT, Route to Pharmacy Electronically, [facility]/pharmacy #[id number], 180, cm, 02/14/21 4:28:00 EDT, Height, 170, kg, 02/13/21 11:44:00 EDT, Dry We... Start Date: 02/14/21 Stop Date: 04/15/21 Status: Orderedescitalopram 10 mg oral tablet 1 tablet = 10 mg, By Mouth, Daily, # 30 tablet, 1 Refills, Maintenance, 02/14/21 14:33:00 EDT, Tablet, [facility]/pharmacy #[id number], 180, cm, 02/14/21 4:28:00 EDT, Height, 170, kg, 02/13/21 11:44:00 EDT, Dry Weight Start Date: 02/14/21 Stop Date: 04/15/21 Status: Orderedgabapentin 300 mg oral capsule 300 mg, 1, capsule, By Mouth, 3 times a day, # 90 capsule, Refills 0, Tot. Refills 0, Maintenance, 02/14/21 14:33:00 EDT, Route to Pharmacy Electronically, [facility]/pharmacy #[id number], Partial fill upon patientrequest if the prescription is for a schedule II... Start Date: 02/14/21 Status: Orderedgabapentin 300 mg oral capsule 300 mg, Capsule, By Mouth, 02/14/21 9:00:00 EDT Start Date: 02/14/21 Stop Date: 02/14/21 Status: Completedgabapentin 300 mg oral capsule 300 mg, Capsule, By Mouth, 02/14/21 15:00:00 EDT Start Date: 02/14/21 Stop Date: 02/14/21 Status: CompletedhydrOXYzine pamoate 50 mg oral capsule 1 capsule = 50 mg, By Mouth, 2 times a day, # 60 capsule, 1 Refills, Maintenance, 02/14/21 14:33:00 EDT, Capsule, [facility]/pharmacy #[id number], 180, cm, 02/14/21 4:28:00 EDT, Height, 170, kg, 02/13/21 11:44:00 EDT, Dry Weight Start Date: 02/14/21 Stop Date: 04/15/21 Status: OrderedLatuda 80 mg oral tablet 1 tablet = 80 mg, By Mouth, 2 times a day, tdd 160 mg with food, # 56 tablet, 1 Refills, Maintenance, 02/14/21 14:33:00 EDT, Tablet, [facility] #[id number], 180, cm, 02/14/21 4:28:00 EDT, Height, 170, kg, 02/13/21 11:44:00 EDT, Dry Weight Start Date: 02/14/21 Stop Date: 04/11/21 Status: Orderedlithium 600 mg oral capsule 1 capsule = 600 mg, By Mouth, Daily at bedtime, dose decrease, # 30 capsule, 1 Refills, Maintenance,02/14/21 14:33:00 EDT, Capsule, [id number], Partial fill upon patient request if the prescription is for a schedule II opioid drug., 180, cm,... Start Date: 02/14/21 Stop Date: 04/15/21 Status: OrderedMethadone = 75 mg, By Mouth, Daily in AM, 80 mg daily per Habit Outcome, 0 Refills, Maintenance, 07/01/17 12:27:44 EST Start Date: 07/01/17 Status: OrderedZyPREXA 5 mg oral tablet 2.5 mg, 0.5, tablet, By Mouth, Daily at bedtime, # 15 tablet, Refills 0, Tot. Refills 0, Maintenance, 02/14/21 14:33:00 EDT, Route to Pharmacy Electronically, [id number], Partial fill upon patient request if the prescription is for a schedule... 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 opiate dependence(Confirmed) Obesity(Confirmed) Active Opiate dependence(Confirmed) Active Vital Signs Most recent to oldest 1 2 3 [Reference Range]: Height 180 cm 180 cm 180 cm (02/14/21 4:28 AM) (02/13/21 2:52 PM) (02/13/21 11: 35 AM) Weight 144.8 kg 143.5 kg 170 kg (02/14/21 6:30 AM) (02/13/21 11:35 AM) (02/13/21 3: 52 AM) Oxygen Saturation [94-100 98 % 99 % 100 % %] (02/14/21 4:28 AM) (02/13/21 7:00 PM) (02/13/21 2:5 2 PM) Pulse Rate [55-90 bpm] 75 bpm 48 bpm 48 bpm (02/14/21 4:28 AM) *L* *L* (02/13/21 7:00 PM) (02/13/21 2:52 PM) Body Mass Index 44.29 52.47 52.47 [18.5-24.99] *>HHI* *>HHI* *>HHI* (02/13/21 11:35 AM) (02/13/21 3:52 AM) (02/13/21 1: 26 AM) Blood Pressure 136/82 mm Hg 123/70 mm Hg 115/74 mm Hg [90-138/55-84 mm Hg] (02/14/21 4:28 AM) (02/13/21 7:00 PM) ( 2:52 PM) Respiratory Rate [16-30 18 br/min 18 br/min 18 br/mi n br/min] (02/14/21 4:19 PM) (02/14/21 10:29 AM) (02/14/21 9: 29 AM) Temperature [96.8-100.4 98.3 DegF 98.2 DegF 98.1 Deg F DegF] (02/14/21 4:28 AM) (02/13/21 7:00 PM) (02/13/21 11: 35 AM) Liters per Minute 0 L/min (02/13/21 7:00 PM) Mode of Delivery (Oxygen) Room air Room air Room a ir (02/14/21 4:28 AM) (02/13/21 7:00 PM) (02/13/21 2:5 2 PM) Blood pressure sites Arm, left Arm, left Arm, left (02/14/21 4:28 AM) (02/13/21 2:52 PM) (02/13/21 11: 35 AM) Temperature Route Oral Oral Oral (02/14/21 4:28 AM) (02/13/21 7:00 PM) (02/13/21 11: 35 AM) Dry Weight 170 kg 170 kg 170 kg (02/13/21 11:35 AM) (02/13/21 3:52 AM) (02/13/21 1: 28 AM) Weight Obtained Via Standing scale Standing scale Patient/fami ly stated (02/14/21 6:30 AM) (02/13/21 11:35 AM) (02/13/21 1: 28 AM) Dry Weight Obtained Via Patient/family stated (02/13/21 1:28 AM) Social History Social History Type Response Smoking Status Current every day smoker; Ot her: 1 PPD; entered on: 12/28/16 Sex
--- OUTSIDE RECORDS SUMMARY | 2022-04-14 20:24 | XMS_ITS | Continuity of Care Document ---
:1995 Author Organization [facility] nter Address [address] [place] [address]- Care Team Providers Name Role Phone Maine Joe MD Primary Care Physician [phone] Encounter [facility] Date(s): 12/18/21 - 12/18/[address] [address]- Discharge Disposition: A-D/C Home Attending Physician: Al Woo MD Admitting Physician: Al Woo MD Referring Physician: Not on Staff, Referring MD Allergies, Adverse Reactions, Alerts No Known Allergies Immunizations Given and Recorded Vaccine Date Status Refusal Reason influenza virus vaccine, inactivated 03/01/11 Given Menactra (oldterm)1 02/28/09 Given Human Papillomavirus Vaccine 10/20/06 Given 1Admin Note: VIS given Medications busPIRone 15 mg oral tablet 1 tablet = 15 mg, By Mouth, 3 times a day, # 42 tablet, 1 Refills, Maintenance, 11/16/21 13:05:00 EDT, Tablet, [facility]/pharmacy #[id number], Partial fill upon patient request if the prescription is for a schedule II opioid drug., 183, cm, 11/16/21 6:43:00 EDT,... Start Date: 11/16/21 Stop Date: 12/14/21 Status: OrderedcloNIDine 0.1 mg oral tablet 0.1 mg, 1, tablet, By Mouth, 2 times a day, # 14 tablet, Refills 2, Tot. Refills 2, Maintenance, 11/16/21 13:04:00 EDT, Route to Pharmacy Electronically, [facility]/pharmacy #[id number], Partial fill upon patient request if the prescription is for a schedule II op... Start Date: 11/16/21 Stop Date: 12/07/21 Status: Ordereddivalproex sodium 500 mg oral enteric coated tablet = 500 mg, By Mouth, 2 times a day, # 28 tablet, 1 Refills, Maintenance, 11/16/21 13:05:00 EDT, Tablet, [facility]/pharmacy #[id number], Partial fill upon patient request if the prescription is for a schedule II opioid drug., 183, cm, 11/16/21 6:43:00 EDT, Height,... Start Date: 11/16/21 Stop Date: 12/14/21 Status: Orderedgabapentin 300 mg oral capsule 300 mg, 1, capsule, By Mouth, 2 times a day, # 28 capsule, Refills 1, Tot. Refills 1, Maintenance, 11/16/21 13:04:00 EDT, Route to Pharmacy Electronically, [facility]/pharmacy #[id number], Partial fill upon patientrequest if the prescription is for a schedule II... Start Date: 11/16/21 Stop Date: 12/14/21 Status: Orderedlithium 600 mg oral capsule = 600 mg, By Mouth, Daily at bedtime, # 14 capsule, 1 Refills, Maintenance, 11/16/21 13:04:00 EDT, Capsule, [id number], Partial fill upon patient request if the prescription is for a schedule II opioid drug., 183, cm, 11/16/21 6:43:00 EDT, Hei... Start Date: 11/16/21 Stop Date: 12/14/21 Status: Orderedmethadone 10 mg oral tablet 5 tablet = 50 mg, By Mouth, Daily, 0 Refills, Maintenance, 11/16/21 13:04:00 EDT, Tablet, Partial fill upon patient request if the prescription is for a schedule II opioid drug. Start Date: 11/16/21 Status: Orderedolanzapine 2.5 mg oral tablet 2.5 mg, 1, tablet, By Mouth, Daily at bedtime, # 14 tablet, Refills 1, Tot. Refills 1, Maintenance, 11/16/21 13:04:00 EDT, Route to Pharmacy Electronically, [facility]/pharmacy #[id number], Partial fill upon patient request if the prescription is for a schedule II... Start Date: 11/16/21 Stop Date: 12/14/21 Status: Ordered Problem List Condition Effective Dates Status Health Status Informant Bipolar I disorder, current or most Active recent episode depressed, in partial remission with mood-congruent psychotic features(Confirmed) Cocaine abuse(Confirmed) Active Long-term current use of methadone for Active opiate dependence(Confirmed) Obesity(Confirmed) Active Opiate dependence(Confirmed) Active Severe obesity(Confirmed) Active Vital Signs Most recent to oldest [Reference Range]: 1 Height 180 cm (12/18/21 6:21 PM) Weight 129.5 kg (12/18/21 6:21 PM) Oxygen Saturation [94-100 %] 99 % (12/18/21 6:21 PM) Pulse Rate [55-90 bpm] 82 bpm (12/18/21 6:21 PM) Blood Pressure [90-138/55-84 mm Hg] 145/85 mm Hg *H* (12/18/21 6:21 PM) Respiratory Rate [16-30 br/min] 18 br/min (12/18/21 6:21 PM) Temperature [96.8-100.4 DegF] 99.4 DegF (12/18/21 6:21 PM) Mode of Delivery (Oxygen) Room air (12/18/21 6:21 PM) Blood pressure sites Arm, left (12/18/21 6:21 PM) Temperature Route Temporal (12/18/21 6:21 PM) Dry Weight 129.5 kg (12/18/21 6:21 PM) Dry Weight Obtained Via Patient/family stated (12/18/21 6:21 PM) Social History Social History Type Response Smoking Status Current every day smoker; Ot her: 1 PPD; entered on: 12/28/16 Sex
--- OUTSIDE RECORDS SUMMARY | 2022-04-14 20:24 | XMS_ITS | Continuity of Care Document ---
:1995 Author Organization [facility] Address [address] [place] [address]- Care Team Providers Name Role Phone Maine Joe MD Primary Care Physician Encounter [facility] Date(s): 09/27/19 - 09/27/[address] [address]- [facility] Encounter Diagnosis Depression (Final) - 09/27/19 Discharge Disposition: A-D/C Home Attending Physician: Jameson Bird MD Admitting Physician: Jameson Bird MD Referring Physician: Not on Staff, Referring [...] 3 [Reference Range]: Oxygen Saturation [94-100 %] 98 % 97 % 100 % (09/27/19 2:47 PM) (09/27/19 8:09 AM) (09/27/19 2:3 2 AM) Pulse Rate [55-90 bpm] 76 bpm 74 bpm 88 bpm (09/27/19 2:47 PM) (09/27/19 8:09 AM) (09/27/19 2:3 2 AM) Blood Pressure [90-138/55-84 124/67 mm Hg 127/85 mm Hg 153 /100 mm Hg mm Hg] (09/27/19 2:47 PM) (09/27/19 8:09 AM) *H* (09/27/19 2:32 AM ) Respiratory Rate [16-30 18 br/min 15 br/min 20 br/mi n br/min] (09/27/19 2:47 PM) *L* (09/27/19 8:09 AM) (09/27/19 10:01 AM) Temperature [96.8-100.4 DegF] 98.4 DegF 98.0 DegF (09/27/19 8:09 AM) (09/27/19 2:32 AM) Mode of Delivery (Oxygen) Room air Room air Room a ir (09/27/19 2:47 PM) (09/27/19 8:09 AM) (09/27/19 2:3 2 AM) Blood pressure sites Arm, right Arm, left Arm, right (09/27/19 2:47 PM) (09/27/19 8:09 AM) (09/27/19 2:3 2 AM) Temperature Route Oral Oral (09/27/19 8:09 AM) (09/27/19 2:32 AM) Social History Social History Type Response Smoking Status Current every day smoker; Ot her: 1 PPD; entered on: 12/28/16 Sex
--- OUTSIDE RECORDS SUMMARY | 2022-04-14 20:24 | XMS_ITS | Continuity of Care Document ---
:1995 Author Organization [facility] Address Unavailable , Care Team Providers Name Role Phone Heath THOMPSON, Maine Weller Primary Care Physician Encounter [facility] Date(s): 02/15/21 - 03/17/21 [facility] Allergies, Adverse Reactions, Alerts Substance Reaction Severity [...] 02/14/21 14:32:00 EDT, Route to Pharmacy Electronically, [facility]/pharmacy #[id number], Partial fill upon patient request if the prescription is for a schedule II op... Start Date: 02/14/21 Status: OrderedhydrOXYzine pamoate 50 mg oral capsule 1 capsule = 50 mg, By Mouth, 2 times a day, # 60 capsule, 1 Refills, Maintenance, 02/14/21 14:33:00 EDT, Capsule, [facility]/pharmacy #[id number], 180, cm, 02/14/21 4:28:00 EDT, Height, [...] 02/14/21 14:33:00 EDT, Route to Pharmacy Electronically, [facility]/pharmacy #[id number], Partial fill upon patient request if the prescription is for a schedule... 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 opiate dependence(Confirmed) Obesity(Confirmed) Active Opiate dependence(Confirmed) Active Social History Social History Type Response Smoking Status Current every day smoker; Ot her: 1 PPD; entered on: 12/28/16 Sex
--- OUTSIDE RECORDS SUMMARY | 2022-04-14 20:24 | XMS_ITS | Continuity of Care Document ---
:1995 Author Organization [facility] Address [address] [place] [address]- Care Team Providers Name Role Phone Maine Joe MD Primary Care Physician [phone] Encounter [facility] Date(s): 07/09/21 - 07/09/[address] [address]- Encounter Diagnosis Headache (Final) - 07/09/21 Discharge Disposition: A-D/C Home Attending Physician: Zeina THOMPSON, Frankie Pope Admitting Physician: Frankie Pastrana MD Referring Physician: Not on Staff, Referring [...] 02/14/21 14:32:00 EDT, Route to Pharmacy Electronically, [facility]/pharmacy #[id number], Partial fill upon patient request if the prescription is for a schedule II op... Start Date: 02/14/21 Status: OrderedhydrOXYzine pamoate 50 mg oral capsule 1 capsule = 50 mg, By Mouth, 2 times a day, # 60 capsule, 1 Refills, Maintenance, 02/14/21 14:33:00 EDT, Capsule, [id number], 180, cm, 02/14/21 4:28:00 EDT, Height, 170, kg, 02/13/21 11:44:00 EDT, Dry Weight Start Date: 02/14/21 Stop Date: 04/15/21 Status: OrderedMethadone = 75 mg, By Mouth, Daily in AM, 80 mg daily per Habit Outcome, 0 Refills, Maintenance, 07/01/17 12:27:44 EST Start Date: 07/01/17 Status: Orderedondansetron 4 mg oral tablet, disintegrating 1 tablet = 4 mg, By Mouth, Every 6 hours, PRN as needed for nausea/vomiting, # 14 tablet, 0 Refills,Maintenance, 05/20/21 20:03:00 EST, DIS Tablet, [facility]/pharmacy #[id number], Partial fill upon patient request if the prescription is for a schedule II opioid... Start Date: 05/20/21 Status: Orderedprochlorperazine 10 mg oral tablet 1 tablet = 10 mg, By Mouth, 3 times a day, PRN Headache, for 7 days, # 21 tablet, 0 Refills, Acute 07/16/21 20:26:00 EST, 07/09/21 20:26:00 EST, Tablet, [facility]/pharmacy #[id number], Partial fill upon patient request if the prescription is for a schedule II opi... Start Date: 07/09/21 Stop Date: 07/16/21 Status: OrderedToradol Inj 10 mg, Injection, IV Push Slowly, Once, STAT, 07/09/21 20:15:00 EST, Stop date 07/09/21 20:15:00 EST Start Date: 07/09/21 Stop Date: 07/09/21 Status: CompletedZyPREXA 5 mg oral tablet 2.5 mg, 0.5, tablet, By Mouth, Daily at bedtime, # 15 tablet, Refills 0, Tot. Refills 0, Maintenance, 02/14/21 14:33:00 EDT, Route to Pharmacy Electronically, [facility]/pharmacy #[id number], Partial fill upon patient request [...] oldest 1 2 3 [Reference Range]: Height 183 cm (07/09/21 6:59 PM) Weight 130.9 kg (07/09/21 6:59 PM) Oxygen Saturation [94-100 %] 97 % 97 % (07/09/21 11:06 PM) (07/09/21 6:59 PM) Blood Pressure [90-138/55-84 123/64 mm Hg 140/82 mm Hg mm Hg] (07/09/21 11:06 PM) *H* (07/09/21 6:59 PM) Respiratory Rate [16-30 16 br/min 20 br/min 16 br/mi n br/min] (07/09/21 11:06 PM) (07/09/21 9:46 PM) (07/09/21 6: 59 PM) Temperature [96.8-100.4 DegF] 97.6 DegF 98.4 DegF (07/09/21 11:06 PM) (07/09/21 6:59 PM) Mode of Delivery (Oxygen) Room air Room air (07/09/21 11:06 PM) (07/09/21 6:59 PM) Blood pressure sites Arm, right (07/09/21 11:06 PM) Temperature Route Oral Oral (07/09/21 11:06 PM) (07/09/21 6:59 PM) Dry Weight 130.9 kg (07/09/21 6:59 PM) Weight Obtained Via Standing scale (07/09/21 6:59 PM) Social History Social History Type Response Smoking Status Current every day smoker; Ot her: 1 PPD; entered on: 12/28/16 Sex
--- OUTSIDE RECORDS SUMMARY | 2022-04-14 20:24 | XMS_ITS | Continuity of Care Document ---
:1995 Author Organization [facility] Address [address] [place] [address]- Care Team Providers Name Role Phone Maine Joe MD Primary Care Physician Encounter [facility] Date(s): 05/20/21 - 05/20/[address] [address]- Discharge Disposition: A-D/C Home Attending Physician: Yifan Gruber MD Admitting Physician: Yifan Gruber MD Referring Physician: Not on Staff, Referring [...] 02/14/21 14:32:00 EDT, Route to Pharmacy Electronically, [facility]/pharmacy #[id number], Partial fill upon patient request if the prescription is for a schedule II op... Start Date: 02/14/21 Status: OrderedhydrOXYzine pamoate 50 mg oral capsule 1 capsule = 50 mg, By Mouth, 2 times a day, # 60 capsule, 1 Refills, Maintenance, 02/14/21 14:33:00 EDT, Capsule, [facility]/pharmacy #[id number], 180, cm, 02/14/21 4:28:00 EDT, Height, [...] 0 Refills,Maintenance, 05/20/21 20:03:00 EST, DIS Tablet, [facility]/pharmacy #[id number], Partial fill upon patient request if the prescription is for a schedule II opioid... Start Date: 05/20/21 Status: OrderedZyPREXA 5 mg oral tablet 2.5 mg, 0.5, tablet, By Mouth, Daily at bedtime, # 15 tablet, Refills 0, Tot. Refills 0, Maintenance, 02/14/21 14:33:00 EDT, Route to Pharmacy Electronically, [facility]/pharmacy #[id number], Partial fill upon patient request [...] Vital Signs Most recent to oldest [Reference 1 2 3 Range]: Height 183 cm 183 cm (05/20/21 3:08 PM) (05/20/21 1:35 PM) Weight 137.3 kg (05/20/21 3:08 PM) Oxygen Saturation [94-100 %] 100 % 100 % 100 % (05/20/21 8:20 PM) (05/20/21 3:08 PM) (05/20/21 1:35 P M) Pulse Rate [55-90 bpm] 78 bpm 71 bpm 68 bpm (05/20/21 8:20 PM) (05/20/21 3:08 PM) (05/20/21 1:35 P M) Blood Pressure [90-138/55-84 mm 124/72 mm Hg 134/69 mm Hg 157/76 mm Hg Hg] (05/20/21 8:20 PM) (05/20/21 3:08 PM) *H* (05/20/21 1:35 PM) Respiratory Rate [16-30 br/min] 22 br/min 20 br/min 18 br/min (05/20/21 8:20 PM) (05/20/21 3:08 PM) (05/20/21 1:35 P M) Temperature [96.8-100.4 DegF] 98.4 DegF 97.9 DegF (05/20/21 3:08 PM) (05/20/21 1:35 PM) Mode of Delivery (Oxygen) Room air Room air Room a ir (05/20/21 8:20 PM) (05/20/21 3:08 PM) (05/20/21 1:35 P M) Blood pressure sites Arm, left Arm, right (05/20/21 3:08 PM) (05/20/21 1:35 PM) Temperature Route Oral Oral (05/20/21 3:08 PM) (05/20/21 1:35 PM) Dry Weight 137.3 kg (05/20/21 3:08 PM) Weight Obtained Via Standing scale (05/20/21 3:08 PM) Dry Weight Obtained Via Standing scale (05/20/21 3:08 PM) Social History Social History Type Response Smoking Status Current every day smoker; Ot her: 1 PPD; entered on: 12/28/16 Sex
--- OUTSIDE RECORDS SUMMARY | 2022-04-14 20:24 | XMS_ITS | Continuity of Care Document ---
:1995 Author Organization [facility] Address [address] [place] [address]- Care Team Providers Name Role Phone Maine Joe MD Primary Care Physician Encounter [facility] [place] [place] Date(s): 09/13/19 - 09/13/[address] [address]- [facility] Discharge Disposition: A-D/C Home Attending Physician: Garland Bullard DDS, MD Admitting Physician: Garland Bullard DDS, MD Referring Physician: Garland Bullard DDS, MD Allergies, Adverse Reactions, Alerts Substance Reaction [...] oldest 1 2 3 [Reference Range]: Height 180.34 cm 180.34 cm (09/13/19 6:51 AM) (09/08/19 2:58 PM) Weight 140.90 kg 140.90 kg (09/13/19 6:51 AM) (09/08/19 2:58 PM) Oxygen Saturation [94-100 %] 100 % 100 % 100 % (09/13/19 10:45 AM) (09/13/19 10:30 AM) (09/13/19 1 0:15 AM) Pulse Rate [55-90 bpm] 60 bpm (09/13/19 6:51 AM) Body Mass Index [18.5-24.99] 43.32 43.32 *>HHI* *>HHI* (09/13/19 6:51 AM) (09/08/19 2:58 PM) Blood Pressure [90-138/55-84 153/75 mm Hg 149/81 mm Hg 135 /69 mm Hg mm Hg] *H* *H* (09/13/19 10:15 A M) (09/13/19 10:45 AM) (09/13/19 10:30 AM) Respiratory Rate [16-30 17 br/min 18 br/min 13 br/mi n br/min] (09/13/19 10:45 AM) (09/13/19 10:30 AM) *L* (09/13/19 10:15 A M) Temperature [96.8-100.4 97 DegF 97 DegF 97.7 Deg F DegF] (09/13/19 10:45 AM) (09/13/19 9:30 AM) (09/13/19 6: 51 AM) Liters per Minute 6 L/min (09/13/19 9:30 AM) Mode of Delivery (Oxygen) Room air Room air Simple face mask (09/13/19 10:45 AM) (09/13/19 10:30 AM) (09/13/19 9 :30 AM) Blood pressure sites Arm, left (09/13/19 6:51 AM) Temperature Route Temporal Temporal Temporal (09/13/19 10:45 AM) (09/13/19 9:30 AM) (09/13/19 6: 51 AM) Dry Weight 140.90 kg (09/08/19 2:58 PM) Social History Social History Type Response Smoking Status Current every day smoker; Ot her: 1 PPD; entered on: 12/28/16 Sex
--- OUTSIDE RECORDS SUMMARY | 2022-04-14 20:24 | XMS_ITS | Continuity of Care Document ---
:1995 Author Organization [facility] Address [address] [place] [address]- Care Team Providers Name Role Phone Maine Joe MD Primary Care Physician Encounter [facility] Date(s): 01/08/21 - 01/08/[address] [address]- Discharge Disposition: A-D/C Home Attending Physician: Raciel [...] Compound Start Date: 10/27/17 Status: OrderedMethadone = 75 mg, By Mouth, Daily in AM, 80 mg daily per Habit Outcome, 0 Refills, Maintenance, 07/01/17 12:27:44 EST Start Date: 07/01/17 Status: Orderedmethadone 10 mg oral tablet 75 mg, Tablet, By Mouth, Once, Routine, 01/08/21 14:00:00 EDT, Stop date 01/08/21 14:00:00 EDT Start Date: 01/08/21 Stop Date: 01/08/21 Status: Completed Problem List Condition Effective Dates Status Health Status Informant Bipolar I disorder, current or most Active recent episode depressed, in partial remission with mood-congruent psychotic features(Confirmed) Cocaine abuse(Confirmed) Active Long-term current use of methadone for Active opiate dependence(Confirmed) Obesity(Confirmed) Active Opiate dependence(Confirmed) Active Vital Signs Most recent to oldest [Reference Range]: 1 2 Height 183 cm (01/08/21 1:00 PM) Weight 146.7 kg (01/08/21 1:00 PM) Oxygen Saturation [94-100 %] 99 % (01/08/21 1:00 PM) Pulse Rate [55-90 bpm] 90 bpm (01/08/21 1:00 PM) Blood Pressure [90-138/55-84 mm Hg] 141/85 mm Hg *H* (01/08/21 1:00 PM) Respiratory Rate [16-30 br/min] 17 br/min 16 br/mi n (01/08/21 2:05 PM) (01/08/21 1:00 PM) Temperature [96.8-100.4 DegF] 97.8 DegF (01/08/21 1:00 PM) Mode of Delivery (Oxygen) Room air (01/08/21 1:00 PM) Blood pressure sites Arm, right (01/08/21 1:00 PM) Temperature Route Temporal (01/08/21 1:00 PM) Dry Weight 146.7 kg (01/08/21 1:00 PM) Weight Obtained Via Standing scale (01/08/21 1:00 PM) Social History Social History Type Response Smoking Status Current every day smoker; Ot her: 1 PPD; entered on: 12/28/16 Sex
--- OUTSIDE RECORDS SUMMARY | 2022-04-14 20:24 | XMS_ITS | Continuity of Care Document ---
:1995 Author Organization [facility] Address Unavailable , Care Team Providers Name Role Phone Maine Joe MD Primary Care Physician [phone] [id number]07[facility] - 01/05/22 [facility] Attending Physician: Kimberly Jones MD Admitting Physician: Kimberly Jones MD Referring Physician: Ari Moore MD Allergies, Adverse Reactions, Alerts No Known Allergies Immunizations Given and Recorded Vaccine Date Status Refusal Reason influenza virus vaccine, inactivated 03/01/11 Given Menactra (oldterm)1 02/28/09 Given Human Papillomavirus Vaccine 10/20/06 Given 1Admin Note: VIS given Medications cloNIDine 0.1 mg oral tablet 0.1 mg, 1, tablet, By Mouth, 2 times a day, # 14 tablet, Refills 2, Tot. Refills 2, Maintenance, 11/16/21 13:04:00 EDT, Route to Pharmacy Electronically, [facility]/pharmacy #[id number], Partial fill upon patient request if the prescription is for a schedule II op... Start Date: 11/16/21 Stop Date: 12/07/21 Status: Orderedgabapentin 300 mg oral capsule 300 mg, 1, capsule, By Mouth, 2 times a day, # 28 capsule, Refills 1, Tot. Refills 1, Maintenance, 11/16/21 13:04:00 EDT, Route to Pharmacy Electronically, [facility]/pharmacy #[id number], Partial fill upon patientrequest if the prescription is for a schedule II... Start Date: 11/16/21 Stop Date: 12/14/21 Status: Orderedmethadone 10 mg oral tablet 5 tablet = 50 mg, By Mouth, Daily, 0 Refills, Maintenance, 11/16/21 13:04:00 EDT, Tablet, Partial fill upon patient request if the prescription is for a schedule II opioid drug. Start Date: 11/16/21 Status: Ordered Problem List Condition Effective Dates Status Health Status Informant Bipolar I disorder, current or most Active recent episode depressed, in partial remission with mood-congruent psychotic features(Confirmed) Cocaine abuse(Confirmed) Active Long-term current use of methadone for Active opiate dependence(Confirmed) Obesity(Confirmed) Active Opiate dependence(Confirmed) Active Severe obesity(Confirmed) Active Social History Social History Type Response Smoking Status Current every day smoker; Ot her: 1 PPD; entered on: 12/28/16 Sex
--- OUTSIDE RECORDS SUMMARY | 2022-04-14 20:24 | XMS_ITS | Continuity of Care Document ---
:1995 Author Organization [facility] Address Unavailable , Care Team Providers Name Role Phone Maine Joe MD Primary Care Physician Encounter [facility] [place] Date(s): 12/06/21 - 01/05/22 [facility] Attending Physician: Atif Cruz Admitting Physician: Atif Cruz Referring Physician: Atif Cruz Allergies, Adverse Reactions, Alerts No Known Allergies [...] 11/16/21 13:04:00 EDT, Route to Pharmacy Electronically, [facility]/pharmacy #[id number], Partial fill upon patient request if the prescription is for a schedule II op... Start Date: 11/16/21 Stop Date: 12/07/21 Status: Orderedgabapentin 300 mg oral capsule 300 mg, 1, capsule, By Mouth, 2 times a day, # 28 capsule, Refills 1, Tot. Refills 1, Maintenance, 11/16/21 13:04:00 EDT, Route to Pharmacy Electronically, [facility]/pharmacy #[id number], Partial fill upon patientrequest if the [...]
--- OUTSIDE RECORDS SUMMARY | 2022-04-14 20:24 | XMS_ITS | Continuity of Care Document ---
:1995 Author Organization [facility] Address [address] [place] [address]- Care Team Providers Name Role Phone Maine Joe MD Primary Care Physician [facility] [id number] Date(s): 10/04/19 - 10/04/[address] [address]- [facility] Encounter Diagnosis Bipolar I disorder, current or most recent episode manic, in partial remission with mood-congruent psychotic features (Final) - 10/04/19 Acute UTI (urinary tract infection) (Final) - 10/04/19 Discharge Disposition: A-D/C Home Attending Physician: Amandeep Fang MD Admitting Physician: Amandeep Fang MD Referring Physician: Not on Staff, Referring [...] Print Requisition, Compound Start Date: 10/27/17 Status: OrderedKeflex monohydrate 500 mg oral capsule 1 capsule = 500 mg, By Mouth, Every 8 hours, for 7 days, # 21 capsule, 0 Refills, Acute 10/11/19 19:10:00 EDT, 10/04/19 19:10:00 EDT, Capsule, [facility] #[id number], 183, cm, 10/04/19 16:58:00 EDT, Height, 140.9, kg, 10/04/19 16:26:00 EDT, Dry W... Start Date: 10/04/19 Stop Date: 10/11/19 Status: OrderedMethadone = 100 mg, By Mouth, [...] [Reference Range]: 1 2 Height 183 cm 183 cm (10/04/19 7:18 PM) (10/04/19 4:00 PM) Weight 140.9 kg 140.9 kg (10/04/19 7:18 PM) (10/04/19 4:00 PM) Oxygen Saturation [94-100 %] 97 % (10/04/19 4:00 PM) Pulse Rate [55-90 bpm] 92 bpm *H* (10/04/19 4:00 PM) Blood Pressure [90-138/55-84 mm Hg] 141/81 mm Hg *H* (10/04/19 4:00 PM) Respiratory Rate [16-30 br/min] 18 br/min 24 br/mi n (10/04/19 7:18 PM) (10/04/19 4:00 PM) Temperature [96.8-100.4 DegF] 97.0 DegF (10/04/19 4:00 PM) Mode of Delivery (Oxygen) Room air (10/04/19 4:00 PM) Blood pressure sites Arm, right (10/04/19 4:00 PM) Temperature Route Temporal (10/04/19 4:00 PM) Dry Weight 140.9 kg 140.9 kg (10/04/19 7:18 PM) (10/04/19 4:00 PM) Weight Obtained Via Patient/family stated (10/04/19 4:00 PM) Social History Social History Type Response Smoking Status Current every day smoker; Ot her: 1 PPD; entered on: 12/28/16 Sex
--- NOTE | 2022-04-14 20:30 | MHC.CARE ---
Care Team met with pt in ED 6H for a risk assessment. Pt reported she is depressed and does not want to continue living like this. Pt stated she currently lives in a sober house and is feeling unsafe. Pt endorses SI but denies HI/AVH. Pt denied any substance abuse. Pt self advocated for inpatient psychiatry admission and stated her mental health is not right.
[2022-04-14] MEDS: LORazepam 1 MG TABLET 2 MG PO (20:57)
[2022-04-14 21:06] LABS: Appearance Urine Clear; Color Urine Yellow; Glucose Urine UA Negative (Negative); Leukocyte Esterase Urine Trace (Negative); Nitrite Urine Negative (Negative); UMIC TRIGGER UA YES; Urine Blood Negative (Negative); Urine Ketones Negative (Negative); Urine Protein Negative (Neg-Trace)
[2022-04-14 21:07] LABS: MANUAL DIFF FLAG NO
[2022-04-14 21:08] LABS: UPreg QC Valid YES; Urine Pregnancy NEGATIVE (NEGATIVE)
[2022-04-14 21:10] LABS: Basophils Percent Auto 0.2 % (0-2); Eosinophils Absolute Auto 0.1 X10*3/uL (0.0-0.4); Eosinophils Percent Auto 1.1 % (0-4); Hematocrit 41.6 % (37.0-47.0); Hemoglobin 13.9 g/dl (12.0-16.0); Imm Gran Abs Auto 0.02 X10*3/uL (0.00-0.03); Imm Gran Pct Auto 0.2 % (0.0-0.4); Lymphocytes Absolute Auto 1.9 X10*3/uL (1.2-4.9); Lymphocytes Percent Auto 22.5 % (20-40); Mean Corpuscular HGB Conc 33.4 g/dl (31.0-35.0); Mean Corpuscular Hemoglobin 29.4 pg (27.0-33.0); Mean Corpuscular Volume 88.1 fL (80.0-98.0); Mean Platelet Volume 9.2 fL (9.4-12.3); Monocytes Absolute Auto 0.6 X10*3/uL (0.1-1.2); Monocytes Percent Auto 6.7 % (2-11); Neutrophils Absolute Auto 5.9 x10*3/uL (2.0-8.3); Neutrophils Percent Auto 69.3 % (45-73); Platelet Count 236 X10*3/uL (160-400); Red Blood Count 4.72 X10*6/uL (4.20-5.50); Red Cell Distribution Width 11.9 % (11.0-16.0); White Blood Count 8.5 X10*3/uL (4.8-10.8)
[2022-04-14 21:16] LABS: Amphetamine Screen Urine Not Detected (Not Detect); Barbiturates, Urine Not Detected (Not Detect); Benzodiazepines Screen Urine Not Detected (Not Detect); Cannabinoid Screen Urine Not Detected (Not Detect); Cocaine Screen Urine Not Detected (Not Detect); Fentanyl, urine Not Detected (Not Detect); Opiate Screen Urine Not Detected (Not Detect); Phencyclidine Screen Urine Not Detected (Not Detect)
[2022-04-14 21:17] LABS: Lithium 0.72 mmol/L (0.60-1.20)
[2022-04-14 21:20] LABS: Bacteria Urine 3+ (None Seen); Hyaline Casts Urine 0-2 /LPF (0-2)
[2022-04-14] MEDS: Nicotine 21 MG PATCH.TD24 TRANSDERMA (21:21)
[2022-04-14 21:23] LABS: Acetaminophen LAB < 1 mcg/mL (<30); Ethanol < 10 mg/dL; Salicylate < 5.0 mg/dL (15-30)
[2022-04-14 21:24] LABS: Alanine Aminotransferase 11 U/L (0-31); Albumin Level 4.2 g/dL (3.5-5.0); Alkaline Phosphatase 61 U/L (39-117); Anion Gap 12 (12-20); Aspartate Amino Transferase 12 U/L (5-31); Bilirubin Total 0.5 mg/dL (0.0-1.0); Blood Urea Nitrogen 14 mg/dL (9-16); Calcium 9.7 mg/dL (8.4-10.2); Carbon Dioxide 30 mmol/L (22-29); Chloride 105 mmol/L (96-108); Creatinine Clr Calc Pharmacy 145.9; Estimated Glomerular Filt Rate > 60; Glucose Random 92 mg/dL (60-115); Potassium 4.4 mmol/L (3.3-5.1); Sodium 143 mmol/L (135-145); Total Protein 6.8 g/dL (6.5-8.0)
[2022-04-14 21:37] LABS: Influenza A PCR NEGATIVE (Negative); Influenza B PCR NEGATIVE (Negative); Resp Syncy Virus RNA Qual PCR NEGATIVE (Negative); SARS COV2 PCR INHOUSE NEGATIVE (Negative)
[2022-04-14 23:02] VITALS: BP 145/73; PULSE 73; RESP 16; TEMP 36.4; O2SAT 97
--- NOTE | 2022-04-15 04:58 | PC.NURSE ---
Patient slept through the night, no distress observed/reported, behavior appropriate and non concerning at this time, patient engaged well during care team assessment, disposition per care team is voluntary inpatient bed search, patient contracted for the safety, VSS, will continue to monitor.
--- NOTE | 2022-04-15 05:04 | PC.NURSE ---
Medication rec completed, pending provider's approval, patient is compliant with her medication as evidenced by lithium level 0.72.
[2022-04-15 08:12] VITALS: BP 124/76; PULSE 61; RESP 12; TEMP 36.4; O2SAT 97
--- NOTE | 2022-04-15 08:51 | PC.NURSE ---
sleeping and slow to awaken, states she still takes depakote but missed doses yesterday, message to pharmacy. back to sleep
[2022-04-15] MEDS: Propranolol HCL 40 MG TABLET PO ×2 (10:06→19:31)
[2022-04-15] MEDS: Lithium Carbonate 300 MG CAPSULE PO (10:06)
[2022-04-15] MEDS: Gabapentin 300 MG CAPSULE PO ×2 (10:06→19:29)
[2022-04-15] MEDS: Divalproex Sodium 500 MG TABLET.DR PO ×2 (10:06→19:30)
[2022-04-15] MEDS: busPIRone HCl 5 MG TABLET 15 MG PO ×3 (10:06→19:30)
[2022-04-15] MEDS: cloNIDine HCL 0.1 MG TABLET PO ×2 (10:07→19:30)
--- NOTE | 2022-04-15 10:51 | PC.NURSE ---
sleeping most of the morning, medicated as ordered, offers no complaints, gave permission for me to speak w her mother, mother plans to visit later, calm and cooperative w nad
--- NOTE | 2022-04-15 12:06 | PC.NURSE ---
python programmer from [employer] called and suggested she be discharged to a higher level of care when she's discharged, she plans to call [facility] tomorrow
--- NOTE | 2022-04-15 16:40 | MHC.CARE ---
A state wide bedsearch has been exhausted for today with the following results. Bedsearch will continue tomorrow. 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), no beds available @ 134[address] Emily Lorenzo [phone] TRUE Kaylene, no beds available @ 1358 [facility] [place] [phone] TRUE Opal, no beds today @ 1359 [facility] [phone] TRUE Chen, no beds today @ 1411 [facility] [phone] [email or web address] TRUE Only taking from [facility] Ronda [phone] TRUE (Not accepting out of state patients still as of 04/15) Vania [phone] TRUE Left a voicemail Carlo Janett [phone] TRUE Yadira, possible discharge, asked for fax 49y/o> @ 1422 [facility] [phone] TRUE Fatemeh, open beds for dual dx [place] [phone] TRUE Finch, no beds today @ 1428 [facility] [phone] TRUE Stefanie, no beds today @ 1422 [facility] [phone] TRUE Danae, no beds today @ 1421 [facility] [phone] TRUE Edd, no beds today @ 1431 [facility] [phone] TRUE Marcelle, none today, reviewing adults for 04/16 @1432 [facility] [phone] TRUE Left a voicemail [place] [address] [phone] TRUE Carly, accepting fax referrals @ 1431 [facility] [phone] TRUE Chen, no beds today @ 1436 [facility] [phone] TRUE Ute, no beds today @ 1438 [place] [phone] TRUE Lynette, no beds today @ 1439 [facility] [phone] TRUE Deondre, only dual dx & on a section 12 @ 1441 [facility] [phone] TRUE dual dx beds only [place] [phone] TRUE Left a voicemail [facility] [phone] TRUE Uziel, only males and dual dx females @ 1442 [facility] [phone] TRUE Sandy, no beds today @ 144 [facility] [phone] TRUE Clarissa, accepting faxes @ 3432 FALSE FALSE FALSE FALSE
[2022-04-15] MEDS: OLANZapine 2.5 MG TABLET PO (19:30)
[2022-04-15] MEDS: Lithium Carbonate 300 MG CAPSULE 600 MG PO (19:30)
[2022-04-15 19:38] VITALS: BP 115/78; PULSE 65; RESP 17; TEMP 36.8; O2SAT 99
[2022-04-15] MEDS: hydrOXYzine HCL 50 MG TABLET PO (20:48)
--- NOTE | 2022-04-16 | ECG_ITS ---
Test Reason : ASSESS QT INTERVAL Blood Pressure : / mmHG Vent. Rate : 056 BPM Atrial Rate : 056 BPM P-R Int : 182 ms QRS Dur : 088 ms QT Int : 428 ms P-R-T Axes : 002 054 040 degrees QTc Int : 413 ms Sinus bradycardia with sinus arrhythmia Otherwise normal ECG No previous ECGs available Referred By: Carlos Solis Electronically Signed By:DAINA LARA MD
--- NOTE | 2022-04-16 05:41 | PC.NURSE ---
Patient slept through the night, no distress observed/reported, medication compliant, appetite good, elimination intact, mood is depressive affect, behavior appropriate and non concerning, disposition per care team is voluntary bed search, bed search exhausted yesterday, VSS, will continue to monitor.
[2022-04-16 06:33] VITALS: BP 123/62; PULSE 56; RESP 17; TEMP 36.7; O2SAT 96
--- NOTE | 2022-04-16 07:16 | PC.NURSE ---
patient appears to remain asleep at present respirations are even and unlabored patient appears in no distress
[2022-04-16] MEDS: busPIRone HCl 5 MG TABLET 15 MG PO ×3 (08:50→21:12)
[2022-04-16] MEDS: cloNIDine HCL 0.1 MG TABLET PO (08:50)
[2022-04-16] MEDS: Gabapentin 300 MG CAPSULE PO ×2 (08:50→21:12)
[2022-04-16] MEDS: Lithium Carbonate 300 MG CAPSULE PO (08:50)
[2022-04-16] MEDS: Divalproex Sodium 500 MG TABLET.DR PO ×2 (08:50→21:12)
[2022-04-16] MEDS: Propranolol HCL 40 MG TABLET PO ×2 (08:54→21:11)
[2022-04-16] MEDS: hydrOXYzine HCL 50 MG TABLET PO (15:00)
[2022-04-16] MEDS: LORazepam 1 MG TABLET 2 MG PO (16:04)
--- NOTE | 2022-04-16 17:05 | P.HPPS_ITS ---
HPI Date of Service: 04/16/22 Chief Complaint: si Sources of Information: patient interviewed, chart reviewed and crisis/core team assessment reviewed HPI Subjective Notes: [place]son Warning and Conditional Voluntary Healthcare Proxy: No Guardianship: No Medical Problems Affecting Mental Status: No Narrative: Opal is a 26 y.o. who carries a dx of Bipolar II DO, KAREN. She presented to [facility] on 04/14/22 due to worsening depression, passive SI without plan or intent. Sx of depression include poor sleep, low appetite, low energy, hopelessness, avolition, and anhedonia. Utox negative. No alcohol abuse. Unclear precipitating factors. I spoke with pt this evening. She is found in bed in hospital attire, back turned to T/W, does not turn around. Pt is flat, dysphoric. Says her meds are ?shit,? denies side effects, but says they ?don?t work.? Pt states her sleep is poor, has ?lots of nightmares,? trauma related, will ?keep waking up because of the nightmares,? daytime energy is low. Denies ever experiencing benefit from medication or therapy. Says she has always been depressed, doesn?t remember a time she hasn?t felt depressed or anxious. Not currently in therapy because she says she doesn?t like it. Precipitating factors include that pt was recently kicked out of her [facility], says she was being bullied there by other clients and that they are ?whack as fuck.? She presents as helpless, hopeless. When asked about her housing situation, pt says she doesn?t really ?give a fuck? where she goes after this. When asked what would help her she says ?I don?t care.? Denies having supports. Currently denies SI. Says she feels safe on the unit. Past Psychiatric History: -per chart, pt has a hx of a suicide attempt 6-7 mo ago, ingested 23 tabs of clonidine, however when asked about this she denied it. Hx of superficial cutting. -has OP psych services at [facility], psych provider is Oralia España NP -Hx of IPLOC, last 10/2021 at [facility] after SA via ODing on clonidine Medical Evaluation Reviewed: Yes PMFSH Family History: -bipolar disorder Social History: -Resides in [facility] in [place] x 3 mo, however says she was ?kicked out? prior to admission for unclear reasons. 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 Diagnostics Vital Signs (24Hr): Vital Signs - 24 hr 04/15/22 19:38 04/16/22 06:33 Temperature 98.2 F 98.1 F Pulse Rate 65 56 Respiratory Rate 17 17 Blood Pressure 115/78 123/62 Pulse Oximetry 99 96 Oxygen Delivery Method Room Air Room Air BMI result Body Mass Index 32.1 Labs Results: 04/14/22 21:02 04/14/22 21:02 Labs: Laboratory Results - last 48 hr 04/14/22 04/14/22 04/14/22 20:50 20:50 20:50 WBC RBC Hgb Hct MCV MCH MCHC RDW Plt Count MPV Immature Gran % (Auto) Neut % (Auto) Lymph % (Auto) Daniels % (Auto) Eos % (Auto) Baso % (Auto) Lymph # (Auto) Daniels # (Auto) Eos # (Auto) Baso # (Auto) Abs Immat Gran (auto) Absolute Neuts (auto) Absolute Nucleated RBC Nucleated RBC % (auto) Sodium Potassium Chloride Carbon Dioxide Anion Gap BUN Creatinine Estim Creat Clear Calc Estimated GFR Random Glucose Calcium Total Bilirubin AST ALT Alkaline Phosphatase Total Protein Albumin Urine Color Yellow Urine Appearance Clear Urine pH 7.0 Ur Specific [place] 1.020 Urine Protein Negative Urine Glucose (UA) Negative Urine Ketones Negative Urine Blood Negative Urine Nitrite Negative Ur Leukocyte Esterase Trace H Urine RBC 11-20 H Urine WBC 11-20 H Ur Squamous Epith Cells 6-10 Urine Bacteria 3+ Hyaline Casts 0-2 Urine Test Salicylates Urine Opiates Screen Not Detected Urine Fentanyl Screen Not Detected Acetaminophen Ur Barbiturates Screen Not Detected Ur Phencyclidine Scrn Not Detected Ur Amphetamines Screen Not Detected U Benzodiazepines Scrn Not Detected [place] Urine Cocaine Screen Not Detected U Marijuana (THC) Screen Not Detected Ethyl Alcohol Influenza Type A (PCR) NEGATIVE Influenza Type B (PCR) NEGATIVE RSV RNA Qual (PCR) NEGATIVE SARS-CoV-2 RNA (RT-PCR) NEGATIVE 04/14/22 04/14/22 04/14/22 20:50 21:02 21:02 WBC 8.5 RBC 4.72 Hgb 13.9 Hct 41.6 MCV 88.1 MCH 29.4 MCHC 33.4 RDW 11.9 Plt Count 236 MPV 9.2 L Immature Gran % (Auto) 0.2 Neut % (Auto) 69.3 Lymph % (Auto) 22.5 Daniels % (Auto) 6.7 Eos % (Auto) 1.1 Baso % (Auto) 0.2 Lymph # (Auto) 1.9 Daniels # (Auto) 0.6 Eos # (Auto) 0.1 Baso # (Auto) 0.0 Abs Immat Gran (auto) 0.02 Absolute Neuts (auto) 5.9 Absolute Nucleated RBC 0.000 Nucleated RBC % (auto) 0.0 Sodium 143 Potassium 4.4 Chloride 105 Carbon Dioxide 30 H Anion Gap 12 BUN 14 Creatinine 0.77 Estim Creat Clear Calc 145.9 Estimated GFR > 60 Random Glucose 92 Calcium 9.7 Total Bilirubin 0.5 AST 12 ALT 11 Alkaline Phosphatase 61 Total Protein 6.8 Albumin 4.2 Urine Color Urine Appearance Urine pH Ur Specific [place] Urine Protein Urine Glucose (UA) Urine Ketones Urine Blood Urine Nitrite Ur Leukocyte Esterase Urine RBC Urine WBC Ur Squamous Epith Cells Urine Bacteria Hyaline Casts Urine Test NEGATIVE Salicylates Urine Opiates Screen Urine Fentanyl Screen Acetaminophen Ur Barbiturates Screen Ur Phencyclidine Scrn Ur Amphetamines Screen U Benzodiazepines Scrn [place] Urine Cocaine Screen U Marijuana (THC) Screen Ethyl Alcohol Influenza Type A (PCR) Influenza Type B (PCR) RSV RNA Qual (PCR) SARS-CoV-2 RNA (RT-PCR) 04/14/22 04/14/22 21:02 21:02 WBC RBC Hgb Hct MCV MCH MCHC RDW Plt Count MPV Immature Gran % (Auto) Neut % (Auto) Lymph % (Auto) Daniels % (Auto) Eos % (Auto) Baso % (Auto) Lymph # (Auto) Daniels # (Auto) Eos # (Auto) Baso # (Auto) Abs Immat Gran (auto) Absolute Neuts (auto) Absolute Nucleated RBC Nucleated RBC % (auto) Sodium Potassium Chloride Carbon Dioxide Anion Gap BUN Creatinine Estim Creat Clear Calc Estimated GFR Random Glucose Calcium Total Bilirubin AST ALT Alkaline Phosphatase Total Protein Albumin Urine Color Urine Appearance Urine pH Ur Specific [place] Urine Protein Urine Glucose (UA) Urine Ketones Urine Blood Urine Nitrite Ur Leukocyte Esterase Urine RBC Urine WBC Ur Squamous Epith Cells Urine Bacteria Hyaline Casts Urine Test Salicylates < 5.0 L Urine Opiates Screen Urine Fentanyl Screen Acetaminophen < 1 Ur Barbiturates Screen Ur Phencyclidine Scrn Ur Amphetamines Screen U Benzodiazepines Scrn [place] 0.72 Urine Cocaine Screen U Marijuana (THC) Screen Ethyl Alcohol < 10 Influenza Type A (PCR) Influenza Type B (PCR) RSV RNA Qual (PCR) SARS-CoV-2 RNA (RT-PCR) Meds/Allergies Meds Home Medications Medication Instructions Recorded Confirmed Type buprenorphine 100 mg/0.5 mL 100 mg subcut QWEEK 04/14/22 04/14/22 History solution,exten.rel.subcutaneous syringe (Sublocade) buspirone 15 mg tablet 1 tab PO TID 04/14/22 04/14/22 History clonidine HCl 0.1 mg tablet 1 tab PO BID 04/14/22 04/14/22 History gabapentin 300 mg capsule 1 cap PO BID 04/14/22 04/14/22 History lithium carbonate 300 mg capsule 1 cap PO QAM 04/14/22 04/14/22 History lithium carbonate 600 mg capsule 1 cap PO BEDTIME 04/14/22 04/14/22 History olanzapine 2.5 mg tablet 1 tab PO BEDTIME 04/14/22 04/14/22 History propranolol 40 mg tablet 1 tab PO BID 04/14/22 04/14/22 History divalproex 500 mg tablet,delayed 1 tab PO BID 04/15/22 04/15/22 History release Allergies Allergies Allergy/AdvReac Type Severity Reaction Status Date / Time No Known Allergies Allergy Verified 01/08/22 19:43 [No Known Allergies*] Mental Status Exam Mental Status Exam Narrative: A&O. Obese, dyed hair, piercings, in hospital attire. Poor eye contact, inattentive. No Tics or Tremors. No abnormal involuntary movements. Calm, guarded, difficult to engage. Non-pressured speech, spontaneous with regular rate and rhythm, normal volume and prosody. No prolonged speech latency or dysarthria. Mood is ?depressed,? affect is congruent. Currently denies SI/SIB/HI upon inquiry. Denies A/VH or delusional thought content. Thoughts are coherent, organized. No known cognitive or memory impairment. Insight/ Judgment fair and adequate. Assessment & Plan Assessment & Plan (1) Bipolar II disorder: Status: Acute Code(s): F31.81 - Bipolar II disorder (2) KAREN (generalized anxiety disorder): Status: Acute Code(s): F41.1 - Generalized anxiety disorder Plan Opal is a 26 y.o. who carries a dx of Bipolar II DO, KAREN. She presented to [facility] on 04/14/22 due to worsening depression, passive SI without plan or intent. Sx of depression include poor sleep, low appetite, low energy, hopelessness, avolition, and anhedonia. Utox negative. No alcohol abuse. Unclear precipitating factors. Plan: Li level on admission 04/14/22 is 0.72. Will continue home meds of Buspar 15 mg TID, gabapentin 300 mg BID, lithium 300 mg daily and 600 mg HS, olanzapine 2.5 mg HS, propranolol 40 mg BID, Depakote 500 mg BID, hydroxyzine 25 mg BID. Will d/c clonidine 0.1 mg BID due to lack of efficacy and start prazosin 2 mg HS for nightmares. Start olanzapine 2.5 mg Q6H PRN for anxiety, agitation as she says this medication ?mellows me out.? Pt is on sublocade 100 mg SQ Q4 weeks, last given 04/05/22. Will obtain VPA level. Patient educated on: diagnosis, medication risk/benefits and therapeutic strategies Reason for continued inpatient stay Substantial Risk for: harm to self, rapid decompensation and med/psych decompensation
[2022-04-16] MEDS: hydrOXYzine HCL 25 MG TABLET PO ×3 (17:30→21:12)
--- NOTE | 2022-04-16 18:20 | PC.ADMIT ---
Opal is a 26-year-old female who arrived to [facility] via ambulance for worsening depression and suicidal ideation. CV and 3-day notice signed. Per crisis eval, pt's daily functioning and ability to care for herself have been diminishing over the past month and she's been struggling with intrusive thoughts of and suicide. During admission assessment, pt denied these claims and was irritable and upset to be here. She said my [facility] kicked me out because they thought I said I wanted to kill myself. I didn't say that, I said that I was depressed. I've never done anything to hurt myself. Now I'm homeless and just want to be discharged so I can go out and get high. Pt denies SI/HI/AH/VH. Tox screen negative. [place] 0.72. Pt presented as flat, guarded, pleasant. Pt has a history of one suicide attempt in September 2021 and a psychiatric admission following a manic episode in October 2021.
--- NOTE | 2022-04-16 18:33 | PC.NURSE ---
pt refused flu shot
[2022-04-16 20:00] VITALS: BP 131/65; PULSE 83; RESP 18; TEMP 36.6; O2SAT 95
[2022-04-16] MEDS: Prazosin HCL 1 MG CAPSULE 2 MG PO (21:11)
[2022-04-16] MEDS: Lithium Carbonate 300 MG CAPSULE 600 MG PO (21:12)
[2022-04-16] MEDS: OLANZapine 2.5 MG TABLET PO (21:12)
[2022-04-16] MEDS: traZODone HCL 50 MG TABLET PO (21:12)
[2022-04-17 10:49] LABS: Estimated Average Glucose 82 mg/dL; Hemoglobin A1c % 4.5 %
--- NOTE | 2022-04-17 10:49 | PC.NURSE ---
Patient declined AM medications on 3 different attempts by this RN from 08:30-10:48. Melissa Otero notified.
[2022-04-17 10:59] LABS: Alanine Aminotransferase 9 U/L (0-31); Albumin Level 3.8 g/dL (3.5-5.0); Alkaline Phosphatase 55 U/L (39-117); Anion Gap 13 (12-20); Aspartate Amino Transferase 10 U/L (5-31); Bilirubin Total 0.6 mg/dL (0.0-1.0); Blood Urea Nitrogen 15 mg/dL (9-16); Calcium 9.3 mg/dL (8.4-10.2); Carbon Dioxide 31 mmol/L (22-29); Chloride 104 mmol/L (96-108); Cholesterol 172 mg/dL; Creatinine Clr Calc Pharmacy 153.9; Estimated Glomerular Filt Rate > 60; Glucose Fasting 105 mg/dL (60-99); HDL Cholesterol 42 mg/dL; LDL Cholesterol Calculated 101 mg/dl; Potassium 4.6 mmol/L (3.3-5.1); Sodium 143 mmol/L (135-145); Total Protein 6.3 g/dL (6.5-8.0); Triglycerides 145 mg/dL
[2022-04-17 11:15] VITALS: RESP 17
[2022-04-17 11:46] LABS: Valproate 30.6 mcg/mL (50.0-100.0)
[2022-04-17] MEDS: busPIRone HCl 5 MG TABLET 15 MG PO ×3 (11:48→21:45)
[2022-04-17] MEDS: Gabapentin 300 MG CAPSULE PO ×2 (11:48→21:46)
[2022-04-17] MEDS: Divalproex Sodium 500 MG TABLET.DR PO ×2 (11:48→21:46)
[2022-04-17] MEDS: Lithium Carbonate 300 MG CAPSULE PO (11:49)
[2022-04-17] MEDS: Propranolol HCL 40 MG TABLET PO ×2 (11:49→21:52)
[2022-04-17] MEDS: hydrOXYzine HCL 25 MG TABLET PO ×3 (11:49→21:45)
[2022-04-17 11:51] VITALS: BP 145/84; PULSE 64; RESP 17; TEMP 36.7; O2SAT 99
--- NOTE | 2022-04-17 16:46 | HO.PSYCHPN ---
Subjective Subjective Date of Service: 04/17/22 Reason For Visit: si Interim History: pt in bed all morning, puts off interview twice. pt able to rouse herself for interview in the afternoon. calm, cooperative. denies SI, states she said she doesn't want to live, not that she wants to kill herself. she answers in the negative when the question of if she wants to kill herself is posed. she states she believes she is depressed. 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 she feels the [facility] where she was living was a bad match for her and that her living environment plays a part in her mood complaint, calling it situational depression. she states she is interested in referral to shelters and is referred to speak with SW on that issue. no med changes. Mental Status Exam Mental Status Exam Narrative: A&O. Obese, dyed hair, piercings, in hospital attire. Poor eye contact, inattentive. No Tics or Tremors. No abnormal involuntary movements. Calm, guarded, difficult to engage. Non-pressured speech, spontaneous with regular rate and rhythm, normal volume and prosody. No prolonged speech latency or dysarthria. Mood is ?depressed,? affect is congruent. Currently denies SI/SIB/HI upon inquiry. Denies A/VH or delusional thought content. Thoughts are coherent, organized. No known cognitive or memory impairment. Insight/ Judgment fair and adequate. Diagnostics Vital Signs (24Hr): Vital Signs - 24 hr 04/16/22 20:00 04/17/22 11:15 04/17/22 11:51 Temperature 97.9 F 98.1 F Pulse Rate 83 64 Respiratory Rate 18 17 17 Blood Pressure 131/65 145/84 H Pulse Oximetry 95 99 Oxygen Delivery Method Room Air Room Air BMI result Body Mass Index 32.1 Labs Results: 04/14/22 21:02 04/17/22 10:05 Labs: Laboratory Results - last 48 hr 04/17/22 04/17/22 04/17/22 10:05 10:05 10:05 Sodium 143 Potassium 4.6 Chloride 104 Carbon Dioxide 31 H Anion Gap 13 BUN 15 Creatinine 0.73 Estim Creat Clear Calc 153.9 Estimated GFR > 60 Fasting Glucose 105 H Estimat Average Glucose 82 Hemoglobin A1c % 4.5 Calcium 9.3 Total Bilirubin 0.6 AST 10 ALT 9 Alkaline Phosphatase 55 Total Protein 6.3 L Albumin 3.8 Triglycerides 145 Cholesterol 172 LDL Cholesterol, Calc 101 HDL Cholesterol 42 Valproic Acid 30.6 L Medications Medications Current Medications Acetaminophen (Acetaminophen 325 Mg Tablet) 650 mg PO Q6H PRN PRN Reason: Headache/Pain Mild Scale (1-3) Al Hydroxide/Mg Hydroxide (Magnesium Hydrox/Alum Hydrox 30 Ml Oral.Susp) 30 ml PO Q6H PRN PRN Reason: Heartburn/Nausea Buspirone HCl (Buspirone Hcl 5 Mg Tablet) 15 mg PO TID [facility] Last Admin: 04/17/22 16:24 Dose: 15 mg Divalproex Sodium (Divalproex Sodium 500 Mg Tablet.Dr) 500 mg PO BID [facility] Last Admin: 04/17/22 11:48 Dose: 500 mg Gabapentin (Gabapentin 300 Mg Capsule) 300 mg PO BID [facility] Last Admin: 04/17/22 11:48 Dose: 300 mg Hydroxyzine HCl (Hydroxyzine Hcl 25 Mg Tablet) 25 mg PO Q6H PRN PRN Reason: Anxiety Last Admin: 04/16/22 21:12 Dose: 25 mg Hydroxyzine HCl (Hydroxyzine Hcl 25 Mg Tablet) 25 mg PO BID [facility] Last Admin: 04/17/22 11:49 Dose: 25 mg [place] Carbonate ([place] Carbonate 300 Mg Capsule) 300 mg PO DAILY [facility] Last Admin: 04/17/22 11:49 Dose: 300 mg [place] Carbonate ([place] Carbonate 300 Mg Capsule) 600 mg PO BEDTIME [facility] Last Admin: 04/16/22 21:12 Dose: 600 mg Magnesium Hydroxide (Milk Of Magnesia 30 Ml Oral.Susp) 30 ml PO DAILY PRN PRN Reason: Constipation Olanzapine (Olanzapine 2.5 Mg Tablet) 2.5 mg PO BEDTIME [facility] Last Admin: 04/16/22 21:12 Dose: 2.5 mg Olanzapine (Olanzapine 2.5 Mg Tablet) 2.5 mg PO Q6H PRN PRN Reason: anxiety Prazosin HCl (Prazosin Hcl 1 Mg Capsule) 2 mg PO BEDTIME [facility]; Protocol Last Admin: 04/16/22 21:11 Dose: 2 mg Propranolol HCl (Propranolol Hcl 40 Mg Tablet) 40 mg PO BID [facility]; Protocol Last Admin: 04/17/22 11:49 Dose: 40 mg Trazodone HCl (Trazodone Hcl 50 Mg Tablet) 50 mg PO BEDTIME PRN PRN Reason: Insomnia Last Admin: 04/16/22 21:12 Dose: 50 mg Allergies Allergies Allergy/AdvReac Type Severity Reaction Status Date / Time No Known Allergies Allergy Verified 01/08/22 19:43 [No Known Allergies*] Assessment & Plan Assessment & Plan (1) Bipolar II disorder: Status: Acute Code(s): F31.81 - Bipolar II disorder (2) KAREN (generalized anxiety disorder): Status: Acute Code(s): F41.1 - Generalized anxiety disorder Plan Opal is a 26 y.o. who carries a dx of Bipolar II DO, KAREN. She presented to [facility] on 04/14/22 due to worsening depression, passive SI without plan or intent. Sx of depression include poor sleep, low appetite, low energy, hopelessness, avolition, and anhedonia. Utox negative. No alcohol abuse. Unclear precipitating factors. Plan: Li level on admission 04/14/22 is 0.72. Will continue home meds of Buspar 15 mg TID, gabapentin 300 mg BID, lithium 300 mg daily and 600 mg HS, olanzapine 2.5 mg HS, propranolol 40 mg BID, Depakote 500 mg BID, hydroxyzine 25 mg BID. Will d/c clonidine 0.1 mg BID due to lack of efficacy and start prazosin 2 mg HS for nightmares. Start olanzapine 2.5 mg Q6H PRN for anxiety, agitation as she says this medication ?mellows me out.? Pt is on sublocade 100 mg SQ Q4 weeks, last given 04/05/22. Will obtain VPA level. 04/17: continue current mgmt. dispo to alf vs apartment. denies SI. I spent ___25___ minutes with the patient and/or on the patient floor today, greater than?50% of which was spent counseling/coordinating care. Reason for contiued inpatient stay Substantial Risk for: inability to function and rapid decompensation
[2022-04-17] MEDS: OLANZapine 2.5 MG TABLET PO ×2 (19:46→21:45)
[2022-04-17 21:43] VITALS: BP 115/54; PULSE 62; RESP 16
[2022-04-17] MEDS: Lithium Carbonate 300 MG CAPSULE 600 MG PO (21:46)
[2022-04-17] MEDS: Prazosin HCL 1 MG CAPSULE 2 MG PO (21:52)
[2022-04-18 07:00] VITALS: BMI 43.4
[2022-04-18 08:53] VITALS: BP 149/70; PULSE 54; RESP 20; TEMP 36.1; O2SAT 100
[2022-04-18] MEDS: Lithium Carbonate 300 MG CAPSULE PO (08:54)
[2022-04-18] MEDS: hydrOXYzine HCL 25 MG TABLET PO (08:54)
[2022-04-18] MEDS: Divalproex Sodium 500 MG TABLET.DR PO (08:54)
[2022-04-18] MEDS: busPIRone HCl 5 MG TABLET 15 MG PO (08:55)
[2022-04-18] MEDS: Gabapentin 300 MG CAPSULE PO (08:55)
--- NOTE | 2022-04-18 11:28 | P.DS_ITS ---
DS: Providers Provider Date of Service: 04/18/22 Date of admission: 04/16/22 15:31 Primary care physician: Maine Joe MD DS: Diagnosis Discharge Diagnosis (1) Bipolar II disorder: Status: Acute (2) KAREN (generalized anxiety disorder): Status: Acute DS: Medications Discharge Medications Home Medications: Home Medications Medication Instructions Recorded Confirmed buprenorphine 100 mg/0.5 mL 100 mg subcut QWEEK 04/14/22 04/14/22 solution,exten.rel.subcutaneous syringe (Sublocade) Previous Rx's Medication Instructions Recorded buspirone 15 mg tablet 1 tab PO TID 14 days #42 tabs 04/18/22 divalproex 500 mg tablet,delayed 1 tab PO BID 14 days #28 tabs 04/18/22 release gabapentin 300 mg capsule 1 cap PO BID 14 days #28 caps 04/18/22 hydroxyzine HCl 25 mg tablet 25 mg PO BID 14 days #28 tabs 04/18/22 lithium carbonate 300 mg capsule 1 cap PO QAM 14 days #14 caps 04/18/22 lithium carbonate 600 mg capsule 1 cap PO BEDTIME 14 days #14 caps 04/18/22 olanzapine 2.5 mg tablet 1 tab PO BEDTIME 14 days #14 tabs 04/18/22 prazosin 1 mg capsule 2 mg PO BEDTIME 14 days #28 caps 04/18/22 propranolol 40 mg tablet 1 tab PO BID 14 days #28 tabs 04/18/22 trazodone 50 mg tablet 50 mg PO BEDTIME PRN Insomnia 14 04/18/22 days #14 tabs Mental Status Exam Mental Status Exam Narrative: A&O. Obese, dyed hair, piercings, in street clothes. Poor eye contact, inattentive. No Tics or Tremors. No abnormal involuntary movements. Calm, guarded, difficult to engage. Non-pressured speech, spontaneous with regular rate and rhythm, normal volume and prosody. No prolonged speech latency or dysarthria. Mood is ?fine,? affect is constricted and non-labile. Currently denies SI/SIB/HI upon inquiry. Denies A/VH or delusional thought content. Thoughts are coherent, organized. No known cognitive or memory impairment. Insight/ Judgment fair and adequate. Data Data Completed and Pending Completed studies during hospitalization [Text1]: 11/04/14/22 04/14/22 20:50 20:50 20:50 WBC RBC Hgb Hct MCV MCH MCHC RDW Plt Count MPV Immature Gran % (Auto) Neut % (Auto) Lymph % (Auto) [place] % (Auto) Eos % (Auto) Baso % (Auto) Lymph # (Auto) [place] # (Auto) Eos # (Auto) Baso # (Auto) Abs Immat Gran (auto) Absolute Neuts (auto) Absolute Nucleated RBC Nucleated RBC % (auto) Sodium Potassium Chloride Carbon Dioxide Anion Gap BUN Creatinine Estim Creat Clear Calc Estimated GFR Random Glucose Fasting Glucose Estimat Average Glucose Hemoglobin A1c % Calcium Total Bilirubin AST ALT Alkaline Phosphatase Total Protein Albumin Triglycerides Cholesterol LDL Cholesterol, Calc HDL Cholesterol Urine Color Yellow Urine Appearance Clear Urine pH 7.0 Ur Specific [place] 1.020 Urine Protein Negative Urine Glucose (UA) Negative Urine Ketones Negative Urine Blood Negative Urine Nitrite Negative Ur Leukocyte Esterase Trace H Urine RBC 11-20 H Urine WBC 11-20 H Ur Squamous Epith Cells 6-10 Urine Bacteria 3+ Hyaline Casts 0-2 Urine Test Salicylates Urine Opiates Screen Not Detected Urine Fentanyl Screen Not Detected Acetaminophen Ur Barbiturates Screen Not Detected Valproic Acid Ur Phencyclidine Scrn Not Detected Ur Amphetamines Screen Not Detected U Benzodiazepines Scrn Not Detected [place] Urine Cocaine Screen Not Detected U Marijuana (THC) Screen Not Detected Ethyl Alcohol Influenza Type A (PCR) NEGATIVE Influenza Type B (PCR) NEGATIVE RSV RNA Qual (PCR) NEGATIVE SARS-CoV-2 RNA (RT-PCR) NEGATIVE 04/14/22 04/14/22 04/14/22 20:50 21:02 21:02 WBC 8.5 RBC 4.72 Hgb 13.9 Hct 41.6 MCV 88.1 MCH 29.4 MCHC 33.4 RDW 11.9 Plt Count 236 MPV 9.2 L Immature Gran % (Auto) 0.2 Neut % (Auto) 69.3 Lymph % (Auto) 22.5 [place] % (Auto) 6.7 Eos % (Auto) 1.1 Baso % (Auto) 0.2 Lymph # (Auto) 1.9 [place] # (Auto) 0.6 Eos # (Auto) 0.1 Baso # (Auto) 0.0 Abs Immat Gran (auto) 0.02 Absolute Neuts (auto) 5.9 Absolute Nucleated RBC 0.000 Nucleated RBC % (auto) 0.0 Sodium 143 Potassium 4.4 Chloride 105 Carbon Dioxide 30 H Anion Gap 12 BUN 14 Creatinine 0.77 Estim Creat Clear Calc 145.9 Estimated GFR > 60 Random Glucose 92 Fasting Glucose Estimat Average Glucose Hemoglobin A1c % Calcium 9.7 Total Bilirubin 0.5 AST 12 ALT 11 Alkaline Phosphatase 61 Total Protein 6.8 Albumin 4.2 Triglycerides Cholesterol LDL Cholesterol, Calc HDL Cholesterol Urine Color Urine Appearance Urine pH Ur Specific [place] Urine Protein Urine Glucose (UA) Urine Ketones Urine Blood Urine Nitrite Ur Leukocyte Esterase Urine RBC Urine WBC Ur Squamous Epith Cells Urine Bacteria Hyaline Casts Urine Test NEGATIVE Salicylates Urine Opiates Screen Urine Fentanyl Screen Acetaminophen Ur Barbiturates Screen Valproic Acid Ur Phencyclidine Scrn Ur Amphetamines Screen U Benzodiazepines Scrn [place] Urine Cocaine Screen U Marijuana (THC) Screen Ethyl Alcohol Influenza Type A (PCR) Influenza Type B (PCR) RSV RNA Qual (PCR) SARS-CoV-2 RNA (RT-PCR) 04/14/22 04/14/22 04/17/22 21:02 21:02 10:05 WBC RBC Hgb Hct MCV MCH MCHC RDW Plt Count MPV Immature Gran % (Auto) Neut % (Auto) Lymph % (Auto) [place] % (Auto) Eos % (Auto) Baso % (Auto) Lymph # (Auto) [place] # (Auto) Eos # (Auto) Baso # (Auto) Abs Immat Gran (auto) Absolute Neuts (auto) Absolute Nucleated RBC Nucleated RBC % (auto) Sodium 143 Potassium 4.6 Chloride 104 Carbon Dioxide 31 H Anion Gap 13 BUN 15 Creatinine 0.73 Estim Creat Clear Calc 153.9 Estimated GFR > 60 Random Glucose Fasting Glucose 105 H Estimat Average Glucose Hemoglobin A1c % Calcium 9.3 Total Bilirubin 0.6 AST 10 ALT 9 Alkaline Phosphatase 55 Total Protein 6.3 L Albumin 3.8 Triglycerides 145 Cholesterol 172 LDL Cholesterol, Calc 101 HDL Cholesterol 42 Urine Color Urine Appearance Urine pH Ur Specific [place] Urine Protein Urine Glucose (UA) Urine Ketones Urine Blood Urine Nitrite Ur Leukocyte Esterase Urine RBC Urine WBC Ur Squamous Epith Cells Urine Bacteria Hyaline Casts Urine Test Salicylates < 5.0 L Urine Opiates Screen Urine Fentanyl Screen Acetaminophen < 1 Ur Barbiturates Screen Valproic Acid Ur Phencyclidine Scrn Ur Amphetamines Screen U Benzodiazepines Scrn [place] 0.72 Urine Cocaine Screen U Marijuana (THC) Screen Ethyl Alcohol < 10 Influenza Type A (PCR) Influenza Type B (PCR) RSV RNA Qual (PCR) SARS-CoV-2 RNA (RT-PCR) 04/17/22 04/17/22 10:05 10:05 WBC RBC Hgb Hct MCV MCH MCHC RDW Plt Count MPV Immature Gran % (Auto) Neut % (Auto) Lymph % (Auto) [place] % (Auto) Eos % (Auto) Baso % (Auto) Lymph # (Auto) [place] # (Auto) Eos # (Auto) Baso # (Auto) Abs Immat Gran (auto) Absolute Neuts (auto) Absolute Nucleated RBC Nucleated RBC % (auto) Sodium Potassium Chloride Carbon Dioxide Anion Gap BUN Creatinine Estim Creat Clear Calc Estimated GFR Random Glucose Fasting Glucose Estimat Average Glucose 82 Hemoglobin A1c % 4.5 Calcium Total Bilirubin AST ALT Alkaline Phosphatase Total Protein Albumin Triglycerides Cholesterol LDL Cholesterol, Calc HDL Cholesterol Urine Color Urine Appearance Urine pH Ur Specific [place] Urine Protein Urine Glucose (UA) Urine Ketones Urine Blood Urine Nitrite Ur Leukocyte Esterase Urine RBC Urine WBC Ur Squamous Epith Cells Urine Bacteria Hyaline Casts Urine Test Salicylates Urine Opiates Screen Urine Fentanyl Screen Acetaminophen Ur Barbiturates Screen Valproic Acid 30.6 L Ur Phencyclidine Scrn Ur Amphetamines Screen U Benzodiazepines Scrn [place] Urine Cocaine Screen U Marijuana (THC) Screen Ethyl Alcohol Influenza Type A (PCR) Influenza Type B (PCR) RSV RNA Qual (PCR) SARS-CoV-2 RNA (RT-PCR) DS: Summary Hospital Course Hospital Course: per 04/16 admission note: Opal is a 26 y.o. who carries a dx of Bipolar II DO, KAREN. She presented to [facility] ED on 04/14/22 due to worsening depression, passive SI without plan or intent. Sx of depression include poor sleep, low appetite, low energy, hopelessness, avolition, and anhedonia. Utox negative. No alcohol abuse. Unclear precipitating factors. I spoke with pt this evening. She is found in bed in hospital attire, back turned to T/W, does not turn around. Pt is flat, dysphoric. Says her meds are ?shit,? denies side effects, but says they ?don?t work.? Pt states her sleep is poor, has ?lots of nightmares,? trauma related, will ?keep waking up because of the nightmares,? daytime energy is low. Denies ever experiencing benefit from medication or therapy. Says she has always been depressed, doesn?t remember a time she hasn?t felt depressed or anxious. Not currently in therapy because she says she doesn?t like it. Precipitating factors include that pt was recently kicked out of her [facility], says she was being bullied there by other clients and that they are ?whack as fuck.? She presents as helpless, hopeless. When asked about her housing situation, pt says she doesn?t really ?give a fuck? where she goes after this. When asked what would help her she says ?I don?t care.? Denies having supports. Currently denies SI. Says she feels safe on the unit. Past Psychiatric History: -per chart, pt has a hx of a suicide attempt 6-7 mo ago, ingested 23 tabs of clonidine, however when asked about this she denied it. Hx of superficial cutting. -has OP psych services at [place], psych provider is Oralia España NP -Hx of IPLOC, last 10/2021 at [facility] after SA via ODing on clonidine Medical Evaluation Reviewed: Yes [facility] Family History: -bipolar disorder Social History: -Resides in [facility] in [place] x 3 mo, however says she was ?kicked out? prior to admission for unclear reasons. 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 pt able to rouse herself for interview in the afternoon.? calm, cooperative.? denies SI, states she said she doesn't want to live, not that she wants to kill herself.? she answers in the negative when the question of if she wants to kill herself is posed.? she states she believes she is depressed.? she has a med provider at [facility] with whom she is working.? she feels the [facility] where she was living was a bad match for her and that her living environment plays a part in her mood complain t, calling it situational depression. ? she states she is interested in referral to shelters and is referred to speak with on that issue.? no med changes. 04/18: up and about, agreeable to meet with MD. agreeable to discharge today, mother has found a room for her in [place]. denies any psych complaints, will DC today at 2:45 to mother's custody. per staff, isolative. not attending any groups. anxious and depressed. 3-day matures tomorrow. wants to discharge MARQUISE. taking meds. slept well. no med changes made during hospitalization. Time Spent with Patient Time attestation: Total time spent providing and/or coordinating discharge services: Time spent: Greater than 30 minutes Discharge Plan Discharge Anticipated Discharge Date/Time: 04/18/22 14:45 Patient Disposition: Home, Self-Care Discharge Diagnosis: Bipolar Disorder, MRE Depressed Referrals: Oralia España (Psychiatry) [Other] - 04/29/22 4:00 pm (This appointment will take place over the phone -If you are interested in receiving therapy, please notify your prescriber during the appointment and she can make the appropriate referral on your behalf. ) Maine Joe MD [Primary Care Provider] - 1 Week Discharge Medications: New trazodone 50 mg Tablet 50 mg PO BEDTIME PRN (Reason: Insomnia) 14 Days Qty: 14 0RF prazosin 1 mg Capsule 2 mg PO BEDTIME 14 Days Qty: 28 0RF Protocol: Hold for SBP< HOLD for SBP < : 90 hydroxyzine HCl 25 mg Tablet 25 mg PO BID 14 Days Qty: 28 0RF Continued Sublocade 100 mg/0.5 mL solution, extended rel syringe 100 mg subcut QWEEK divalproex 500 mg tablet,delayed release (DR/EC) 1 tab PO BID 14 Days Qty: 28 0RF olanzapine 2.5 mg tablet 1 tab PO BEDTIME 14 Days Qty: 14 0RF propranolol 40 mg tablet 1 tab PO BID 14 Days Qty: 28 0RF lithium carbonate 600 mg capsule 1 cap PO BEDTIME 14 Days Qty: 14 0RF lithium carbonate 300 mg capsule 1 cap PO QAM 14 Days Qty: 14 0RF gabapentin 300 mg capsule 1 cap PO BID 14 Days Qty: 28 0RF buspirone 15 mg tablet 1 tab PO TID 14 Days Qty: 42 0RF Discontinued clonidine HCl 0.1 mg tablet 1 tab PO BID Discharge Orders: Discharge Order (Routine); Ordered 04/18/22 Ordered By: Wilber Ibarra Diet: Advance to usual diet Activity on Discharge: As tolerated Stand Alone Forms: Patient Portal Discharge page, Community Support Care Plan Goals: remain safe and sober in the outpatient treatment setting Health Concerns: none Plan of Treatment: take medications as prescribed, attend appointments as scheduled Assessment: not at imminent risk of harm to self or others
[2022-04-18] MEDS: Nicotine 21 MG PATCH.TD24 TRANSDERMA ×2 (12:58)
--- NOTE | 2022-04-18 14:22 | PC.NURSE ---
Patient easily engaged. Reports feeling ready for discharge. Denies depression or sadness, denies SI/HI plan or intent at this time. Denies perceptual disturbances, no overt psychosis or expressed delusions. Declines to review discharge paperwork stating I don't need to go over that, I know what I am supposed to take . Patient reports understanding of follow up appointments. Reports understanding of medications, and pharmacy to obtain them. Will call PCP for appointment. All belongings taken with patient. Crisis numbers provided to patient.
== END 2022-04-18 15:30 | disposition home or self-care (01) | DRG 753 ==
LOC: HO.ED 23:17 → HO.PADLT16 04-16 15:39
PROVIDERS: Registered Nurse; Social Worker; Admitting Provider Psychiatry & Neurology Psychiatry; Emergency Provider Internal Medicine; PCP Internal Medicine; Visit Provider Psychiatry & Neurology Psychiatry
DX: F31.81 Bipolar II disorder (principal); R45.851 Suicidal ideations; Z68.41 Body mass index [BMI] 40.0-44.9, adult; F41.1 Generalized anxiety disorder; E66.9 Obesity, unspecified; F17.210 Nicotine dependence, cigarettes, uncomplicated; Z20.822 Contact with and (suspected) exposure to COVID-19; Z59.02 Unsheltered homelessness; Z71.6 Tobacco abuse counseling; Z79.899 Other long term (current) drug therapy
CPT/HCPCS: 0241U; 36415; 80053; 80061; 80143; 80164; 80178; 80179; 80307; 81001; 81003; 81025; 82077; 83036; 85025; 93005; 99285

== ENCOUNTER 2023-12-08 22:37 | Inpatient (IN) | payer OTHER, SELFPAY ==
[2023-12-08 22:53] VITALS: BP 153/97; PULSE 71; O2SAT 98
[2023-12-08 23:06] VITALS: BP 127/84; PULSE 58; RESP 18; TEMP 36.6; O2SAT 98; BMI 36.7
--- NOTE | 2023-12-08 23:52 | PC.NURSE ---
pt biba from the street, pt a&o4 respirations even and unlabored, pt reports not feeling safe at home due to homelessness. pt also reporting vaginal bleeding/ cramping and is unsure if . pt reports she has been using etoh, cocaine, crack and dope. pt noted to be restless in bed. pt changed over into green gown, security at bedside placing pt belongings in decon.
--- NOTE | 2023-12-09 | ED.GENADULT ---
HPI - General Adult General Chief complaint: General Medical Stated complaint: Drug/alcohol use, vag bleeding, preg? Time Seen by Provider: 12/08/23 23:53 Source: patient Mode of arrival: EMS Limitations: no limitations History of Present Illness ED Provider: mini OQUENDO narrative: Patient's history of polysubstance abuse use cocaine heroin alcohol with history of depression wants to go to rehab been to detox multiple times last visit was 2 weeks ago does not have her medications for depression asking for her not suicidal at this time but had thoughts about it patient is homeless Related Data Home Medications ?Medication ?Instructions ?Recorded ?Confirmed buprenorphine 100 mg/0.5 mL 100 mg subcut QWEEK 04/14/22 04/14/22 solution,exten.rel.subcutaneous syringe (Sublocade) Previous Rx's ?Medication ?Instructions ?Recorded buspirone 15 mg tablet 1 tab PO TID 14 days #42 tabs 04/18/22 divalproex 500 mg tablet,delayed 1 tab PO BID 14 days #28 tabs 04/18/22 release gabapentin 300 mg capsule 1 cap PO BID 14 days #28 caps 04/18/22 hydroxyzine HCl 25 mg tablet 25 mg PO BID 14 days #28 tabs 04/18/22 lithium carbonate 300 mg capsule 1 cap PO QAM 14 days #14 caps 04/18/22 lithium carbonate 600 mg capsule 1 cap PO BEDTIME 14 days #14 caps 04/18/22 olanzapine 2.5 mg tablet 1 tab PO BEDTIME 14 days #14 tabs 04/18/22 prazosin 1 mg capsule 2 mg PO BEDTIME 14 days #28 caps 04/18/22 propranolol 40 mg tablet 1 tab PO BID 14 days #28 tabs 04/18/22 trazodone 50 mg tablet 50 mg PO BEDTIME PRN Insomnia 14 04/18/22 days #14 tabs Allergies Allergy/AdvReac Type Severity Reaction Status Date / Time No Known Allergies Allergy Verified 12/08/23 23:06 [No Known Allergies*] Review of Systems Review of Systems: Yes all other systems are reviewed and are negative PMFSH Social History Social History Household Members: None Housing: Homeless Alcohol intake: current Alcohol intake frequency: does not drink Patient Tobacco Use Status: Current everyday Tobacco user Cigarette Packs Per Day: 1 Cigarettes Per Day: 20.0 Smoked in Last 30 Days: Yes Use of substances other than those prescribed or required for medical reasons: Yes Substance Use Type: Crack/Cocaine, Heroin, Marijuana and Opiates Substance Use Frequency: Chronic Longstanding service: No Sexual orientation: Don't Know Physical Exam ED Vital Signs: Vital Signs - 24 hr 12/08/23 23:06 Temperature 97.8 F Pulse Rate 58 Respiratory Rate 18 Blood Pressure 127/84 Pulse Oximetry 98 Oxygen Delivery Method Room Air BMI result Body Mass Index 36.7 Appearance: Alert. Oriented X3. No acute distress. Eyes: PERRLA, No Nystagmus ENT: Pharynx normal. Oral Mucosa moist Neck: Normal inspection. Neck supple. CVS: Normal heart rate and rhythm. Pulses normal. Respiratory: No respiratory distress. Equal air entry bilateral, no wheezing/rales/rhonchi Abdomen: Soft and nontender. Bowel sounds are present, no mass palpable, no CVA tenderness Skin: Skin warm and dry. Normal skin color. Normal skin turgor. IVDA track gray++ Extremities: No lower extremity edema. No calf tenderness Neuro: Oriented X 3. No motor deficit. No sensory deficit.No cerebellar signs , cranial nerves II-XII intact Medical Decision Making Medical Decision Making MDM Narrative: Patient homeless with polysubstance abuse with depression with vague SI ideas will get care team consult Patient's mother called and said patient had miscarriage 2 days ago patient not able to answer at this time will get hCG level Lab Data MDM Lab Attestation statement: I reviewed the patient's lab results. 12/09/23 01:41 12/09/23 01:41 Labs: Lab Results 12/09/23 12/09/23 Range/Units 00:48 01:41 WBC 6.2 (4.8-10.8) X10*3/uL RBC 4.59 (4.20-5.50) X10*6/uL Hgb 14.5 (12.0-16.0) g/dl Hct 41.0 (37.0-47.0) % MCV 89.3 (80.0-98.0) fL MCH 31.6 (27.0-33.0) pg MCHC 35.4 H (31.0-35.0) g/dl RDW 11.9 (11.0-16.0) % Plt Count 186 (160-400) X10*3/uL MPV 9.4 (9.4-12.3) fL Immature Gran % (Auto) 0.2 (0.0-0.4) % Neut % (Auto) 49.3 (45-73) % Lymph % (Auto) 39.9 (20-40) % [place] % (Auto) 9.0 (2-11) % Eos % (Auto) 1.3 (0-4) % Baso % (Auto) 0.3 (0-2) % Lymph # (Auto) 2.5 (1.2-4.9) X10*3/uL [place] # (Auto) 0.6 (0.1-1.2) X10*3/uL Eos # (Auto) 0.1 (0.0-0.4) X10*3/uL Baso # (Auto) 0.0 (0.0-0.2) X10*3/uL Abs Immat Gran (auto) 0.01 (0.00-0.03) X10*3/uL Absolute Neuts (auto) 3.1 (2.0-8.3) x10*3/uL Absolute Nucleated RBC 0.000 (0.0-0.012) X10*3/uL Nucleated RBC % (auto) 0.0 (0.0-0.2) /100WBC Ethyl Alcohol < 10 mg/dL Discharge Plan Discharge Clinical Impression: Depression, Polysubstance abuse Patient Disposition: Still a Patient Prescriptions: No Action Sublocade 100 mg/0.5 mL solution, extended rel syringe 100 mg subcut QWEEK trazodone 50 mg Tablet 50 mg PO BEDTIME PRN (Reason: Insomnia) 14 Days Qty: 14 0RF prazosin 1 mg Capsule 2 mg PO BEDTIME 14 Days Qty: 28 0RF Protocol: Hold for SBP< HOLD for SBP < : 90 hydroxyzine HCl 25 mg Tablet 25 mg PO BID 14 Days Qty: 28 0RF divalproex 500 mg tablet,delayed release (DR/EC) 1 tab PO BID 14 Days Qty: 28 0RF olanzapine 2.5 mg tablet 1 tab PO BEDTIME 14 Days Qty: 14 0RF propranolol 40 mg tablet 1 tab PO BID 14 Days Qty: 28 0RF lithium carbonate 600 mg capsule 1 cap PO BEDTIME 14 Days Qty: 14 0RF lithium carbonate 300 mg capsule 1 cap PO QAM 14 Days Qty: 14 0RF gabapentin 300 mg capsule 1 cap PO BID 14 Days Qty: 28 0RF buspirone 15 mg tablet 1 tab PO TID 14 Days Qty: 42 0RF Print Language: Khmer
--- NOTE | 2023-12-09 00:57 | PC.NURSE ---
pt noted to have zyprexa and lithium at bedside, collected by this rn and placed in decon by security.
--- NOTE | 2023-12-09 01:04 | PC.NURSE ---
unable to collect labs at this time due to pt agitation, aware.
[2023-12-09 01:08] LABS: Ethanol < 10 mg/dL
[2023-12-09 01:45] LABS: MANUAL DIFF FLAG NO
[2023-12-09 01:46] LABS: Basophils Percent Auto 0.3 % (0-2); Eosinophils Absolute Auto 0.1 X10*3/uL (0.0-0.4); Eosinophils Percent Auto 1.3 % (0-4); Hemoglobin 14.5 g/dl (12.0-16.0); Imm Gran Abs Auto 0.01 X10*3/uL (0.00-0.03); Imm Gran Pct Auto 0.2 % (0.0-0.4); Lymphocytes Absolute Auto 2.5 X10*3/uL (1.2-4.9); Lymphocytes Percent Auto 39.9 % (20-40); Mean Corpuscular HGB Conc 35.4 g/dl (31.0-35.0); Mean Corpuscular Hemoglobin 31.6 pg (27.0-33.0); Mean Corpuscular Volume 89.3 fL (80.0-98.0); Mean Platelet Volume 9.4 fL (9.4-12.3); Monocytes Absolute Auto 0.6 X10*3/uL (0.1-1.2); Neutrophils Absolute Auto 3.1 x10*3/uL (2.0-8.3); Neutrophils Percent Auto 49.3 % (45-73); Platelet Count 186 X10*3/uL (160-400); Red Blood Count 4.59 X10*6/uL (4.20-5.50); Red Cell Distribution Width 11.9 % (11.0-16.0); White Blood Count 6.2 X10*3/uL (4.8-10.8)
[2023-12-09 02:00] VITALS: BP 123/77; PULSE 51; RESP 16; TEMP 36.6; O2SAT 98
[2023-12-09 02:07] LABS: Alanine Aminotransferase 10 U/L (0-31); Albumin Level 4.2 g/dL (3.5-5.0); Alkaline Phosphatase 56 U/L (39-117); Anion Gap 14 (12-20); Aspartate Amino Transferase 10 U/L (5-31); Bilirubin Total 0.9 mg/dL (0.0-1.0); Blood Urea Nitrogen 10 mg/dL (9-16); Calcium 9.7 mg/dL (8.4-10.2); Carbon Dioxide 23 mmol/L (22-29); Chloride 108 mmol/L (96-108); Creatinine Clr Calc Pharmacy 174.1; Estimated Glomerular Filt Rate > 60; Glucose Random 100 mg/dL (60-115); Potassium 3.5 mmol/L (3.3-5.1); Sodium 141 mmol/L (135-145); Total Protein 7.2 g/dL (6.5-8.0)
[2023-12-09 02:19] LABS: HCG Quantitative < 2 mIU/mL
--- NOTE | 2023-12-09 05:41 | PC.NURSE ---
report given to POD RN.
--- NOTE | 2023-12-09 06:03 | PC.NURSE ---
upon transfer to POD pt noted to have nose jewelry in, pt reports she can not remove them at this time. POD RN Mery aware and value advisor Jasmin aware.
--- NOTE | 2023-12-09 07:16 | PC.NURSE ---
Assumed care of patient at 0645, patient appears to be sleeping, no apparent distress noted. Continue plan of care for CARE team silver
--- NOTE | 2023-12-09 07:24 | PC.NURSE ---
Patient refusing to be registered stating I am too tired . However, sat up and ate breakfast. Patient educated that she needs to participate in the registration and evaluation process to get help like she requested originally. Patient agreeable to registration at this time
--- NOTE | 2023-12-09 09:10 | PC.NURSE ---
Susana, CARE team informed this RN that patient's mother told us that Opal had miscarried 3 days [employer]. This RN attempted to speak with patient regarding this. patient does endorse miscarriage three days ago, she is unsure of how far along she was in the . She also endorses current bleeding (will not disclose how much bleeding is present) and also endorses lower abdominal cramping. This RN attempted to gather further information however, patient stated that she is too tired to talk . This RN attempted to educate patient that it is important for her to be evaluated for her physical safety, patient continued to decline. MD Peters aware at this time
--- NOTE | 2023-12-09 13:34 | PC.NURSE ---
patient reminded of need for urine sample, patient stated Im tired ill give it later
[2023-12-09 15:11] VITALS: PULSE 53; RESP 16; O2SAT 99
[2023-12-09 15:12] LABS: Appearance Urine Turbid; Color Urine Dark Yellow; Glucose Urine UA Negative (Negative); Leukocyte Esterase Urine Trace (Negative); Nitrite Urine Negative (Negative); Specific Gravity - Urine >= 1.030 (1.005-1.025); UMIC TRIGGER UACC YES; Urine Blood Large (3+) (Negative); Urine Ketones Trace mg/dL (Negative); Urine Protein 30 (1+) mg/dL (Neg-Trace)
[2023-12-09 15:23] LABS: Bacteria Urine Trace (None Seen); Hyaline Casts Urine 0-2 /LPF (0-2); Other Crystals Urine Present; RBC Urine >20 /HPF (0-2); WBC Urine 0-5 /HPF (0-5)
[2023-12-09 15:31] LABS: Amphetamine Screen Urine Not Detected (Not Detect); Barbiturates, Urine Not Detected (Not Detect); Benzodiazepines Screen Urine Not Detected (Not Detect); Buprenorphine Scr Positive (Not Detect); Cannabinoid Screen Urine Not Detected (Not Detect); Cocaine Screen Urine POSITIVE (Not Detect); Fentanyl, urine POSITIVE (Not Detect); Methadone Screen, Urine Not Detected (Not Detect); Opiate Screen Urine Not Detected (Not Detect); Oxycodone Screen Urine Not Detected (Not Detect); Phencyclidine Screen Urine Not Detected (Not Detect)
--- NOTE | 2023-12-09 16:10 | PC.NURSE ---
Patient refusing EKG, stating no, I'm not doing that, I'm tired
[2023-12-09 16:30] VITALS: RESP 16
[2023-12-09] MEDS: LORazepam 1 MG TABLET 2 MG PO ×2 (17:40→21:55)
[2023-12-09] MEDS: Famotidine 20 MG TABLET PO (17:41)
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
[2023-12-09 19:09] VITALS: RESP 16
[2023-12-09] MEDS: Lithium Carbonate ER 300 MG TABLET.ER PO (21:55)
[2023-12-09] MEDS: traZODone HCL 50 MG TABLET PO (21:55)
[2023-12-10 08:00] VITALS: BP 120/85; PULSE 54; RESP 18; TEMP 36.1; O2SAT 99
[2023-12-10] MEDS: LORazepam 1 MG TABLET 2 MG PO ×2 (09:52→20:17)
[2023-12-10] MEDS: Multivitamin TABLET 1 TAB PO (09:53)
[2023-12-10] MEDS: Famotidine 20 MG TABLET PO ×2 (09:53→20:17)
[2023-12-10] MEDS: Acetaminophen 325 MG TABLET 650 MG PO ×2 (09:53→20:17)
[2023-12-10] MEDS: Folic Acid 1 MG TABLET PO (09:53)
[2023-12-10] MEDS: Thiamine HCL 100 MG TABLET PO (09:53)
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
[2023-12-10] MEDS: LORazepam 1 MG TABLET PO ×2 (12:57→16:50)
[2023-12-10] MEDS: QUEtiapine Fumarate 100 MG TABLET PO (20:17)
[2023-12-10] MEDS: Lithium Carbonate ER 300 MG TABLET.ER PO (20:17)
[2023-12-10] MEDS: traZODone HCL 50 MG TABLET PO (20:17)
[2023-12-11 08:00] VITALS: RESP 18
[2023-12-11] MEDS: LORazepam 1 MG TABLET PO ×2 (09:09→20:39)
[2023-12-11] MEDS: Thiamine HCL 100 MG TABLET PO (09:10)
[2023-12-11] MEDS: Famotidine 20 MG TABLET PO ×2 (09:10→20:27)
[2023-12-11] MEDS: Folic Acid 1 MG TABLET PO (09:10)
[2023-12-11] MEDS: Multivitamin TABLET 1 TAB PO (09:10)
--- NOTE | 2023-12-11 10:47 | MHC.RECOVRN ---
Briefly met with pt in 507 after consult placed to Addiction Medicine for substance use. Pt laying in bed, asleep, wakes to voice. Difficult to engage in conversation, tells me she is tired. Pt reports cocaine use, $1000 daily, INH, 3 pints alcohol daily, as well as 5 benzos daily, PO. Pt denies heroin/fentanyl and buprenorphine use. Pt appears comfortable, does not appear to be experiencing opioid withdrawal at this time. Pt ceased answering questions and kept eyes closed. T/w to return at a later time.
--- NOTE | 2023-12-11 10:51 | P.PNPSI_ITS ---
Subjective Subjective Date of Service: 12/11/23 Reason For Visit: Drug/alcohol use, vag bleeding, preg? Subjective Notes: Conditional Voluntary Healthcare Proxy: No Guardianship: No Medical Problems Affecting Mental Status: No Interim History: Continues to refuse to meet. Sleeping, Resistant In bed, poor communication, asks for CSS admit, or RCA and Thorazine. Unwilling to interact with team when we approached her to discuss treatment planning. Medication Compliance: Yes Side effects from medications: Yes (sedation) Attending Groups: No Review of Systems Acute medical concerns: No Medical Review of Systems: unchanged Review of Systems Review of Systems sedation Mental Status Exam Mental Status Exam Patient Appearance: Fatigued Patient Orientation: Person and Place Level of Consciousness: Drowsy and Sedated Patient Behavior: Asleep, Avoidant, Uncooperative and Poor Eye Contact Mood Description: Flat Affect Description: Flat Patient Cognition Impaired: No Speech Pattern: Spontaneous Speech Depressive Symptoms: Sleeping More Than Usual Diagnostics Vital Signs (24Hr): Vital Signs - 24 hr 12/11/23 08:00 Respiratory Rate 18 BMI result Body Mass Index 36.7 Labs 12/09/23 01:41 12/09/23 01:41 Labs: Laboratory Results - last 48 hr 12/09/23 15:03 Urine Color Dark Yellow Urine Appearance Turbid Urine pH 6.0 Ur Specific [place] >= 1.030 H Urine Protein 30 (1+) H Urine Glucose (UA) Negative Urine Ketones Trace Urine Blood Large (3+) H Urine Nitrite Negative Ur Leukocyte Esterase Trace H Urine RBC >20 H Urine WBC 0-5 Ur Squamous Epith Cells 11-20 Other Crystals Present Urine Bacteria Trace Hyaline Casts 0-2 Urine Opiates Screen Not Detected Ur Buprenorphine Scrn Positive H Ur Oxycodone Screen Not Detected Urine Methadone Screen Not Detected Urine Fentanyl Screen POSITIVE H Ur Barbiturates Screen Not Detected Ur Phencyclidine Scrn Not Detected Ur Amphetamines Screen Not Detected U Benzodiazepines Scrn Not Detected Urine Cocaine Screen POSITIVE H U Marijuana (THC) Screen Not Detected Medications Medications Current Medications Acetaminophen (Acetaminophen 325 Mg Tablet) 650 mg PO Q6H PRN PRN Reason: Headache/Pain Mild Scale (1-3) Last Admin: 12/10/23 20:17 Dose: 650 mg Al Hydroxide/Mg Hydroxide (Magnesium Hydrox/Alum Hydrox 30 Ml Oral.Susp) 30 ml PO Q6H PRN PRN Reason: Heartburn/Nausea Famotidine (Famotidine 20 Mg Tablet) 20 mg PO BID [facility] Last Admin: 12/11/23 09:10 Dose: 20 mg Folic Acid (Folic Acid 1 Mg Tablet) 1 mg PO DAILY [facility] Last Admin: 12/11/23 09:10 Dose: 1 mg Hydroxyzine HCl (Hydroxyzine Hcl 25 Mg Tablet) 25 mg PO Q6H PRN PRN Reason: Anxiety [place] Carbonate (Shirley Carbonate Er 300 Mg Tablet.Er) 300 mg PO BEDTIME [facility] Last Admin: 12/10/23 20:17 Dose: 300 mg Lorazepam (Lorazepam 1 Mg Tablet) 1 mg PO Q2H PRN PRN Reason: CIWA 6-10 Last Admin: 12/11/23 09:09 Dose: 1 mg Lorazepam (Lorazepam 1 Mg Tablet) 2 mg PO Q2H PRN PRN Reason: CIWA 11 and above Last Admin: 12/10/23 20:17 Dose: 2 mg Magnesium Hydroxide (Milk Of Magnesia 30 Ml Oral.Susp) 30 ml PO DAILY PRN PRN Reason: Constipation Multivitamins/Vitamin C (Multivitamin Tablet) 1 tab PO DAILY [facility] Last Admin: 12/11/23 09:10 Dose: 1 tab Nicotine Polacrilex (Nicotine Polacrilex 2 Mg Gum) 4 mg BUCCAL Q2H PRN PRN Reason: Nicotine Cravings Olanzapine (Olanzapine 2.5 Mg Tablet) 2.5 mg PO TID PRN PRN Reason: agitation Ondansetron HCl (Ondansetron Odt 4 Mg Tab.Rapdis) 4 mg TRANSLINGU Q6H PRN PRN Reason: Nausea and Vomiting Quetiapine Fumarate (Quetiapine Fumarate 100 Mg Tablet) 100 mg PO TID PRN PRN Reason: anxiety/insomnia Last Admin: 12/10/23 20:17 Dose: 100 mg Thiamine HCl (Thiamine Hcl 100 Mg Tablet) 100 mg PO DAILY [facility] Last Admin: 12/11/23 09:10 Dose: 100 mg Trazodone HCl (Trazodone Hcl 50 Mg Tablet) 50 mg PO BEDTIME MRX1 PRN PRN Reason: Insomnia Last Admin: 12/10/23 20:17 Dose: 50 mg Allergies Allergies Allergy/AdvReac Type Severity Reaction Status Date / Time No Known Allergies Allergy Verified 12/08/23 23:06 [No Known Allergies*] Assessment & Plan Assessment & Plan (1) Polysubstance abuse: Status: Acute Code(s): F19.10 - Other psychoactive substance abuse, uncomplicated (2) Bipolar II disorder: Status: Acute Code(s): F31.81 - Bipolar II disorder (3) KAREN (generalized anxiety disorder): Status: Acute Code(s): F41.1 - Generalized anxiety disorder Assessment and Plan: 28 yo female, hx bipolar disorder, polysubstance use disorder, anxiety. Plan: Admit, CV, 15 minute checks Continue current regime as pt has been off medications for several months Collateral contact B12,Folate, TSH 12/11/23 Pt refuses to meet with team to complete treatment planning. She is in bed, asleep, responsive, yet unwilling to engage with team to discuss her care. Reason for continued inpatient stay Substantial Risk for: rapid decompensation Time Spent With Patient Time: Total time managing care of this patient today ____ minutes.
[2023-12-11] MEDS: LORazepam 1 MG TABLET 2 MG PO (18:07)
[2023-12-11] MEDS: QUEtiapine Fumarate 100 MG TABLET PO ×2 (18:31→20:26)
[2023-12-11] MEDS: Lithium Carbonate ER 300 MG TABLET.ER PO (20:26)
[2023-12-12 08:45] VITALS: BP 133/67; PULSE 68; RESP 16; TEMP 36.4; O2SAT 100
[2023-12-12] MEDS: Folic Acid 1 MG TABLET PO (08:46)
[2023-12-12] MEDS: Multivitamin TABLET 1 TAB PO (08:46)
[2023-12-12] MEDS: Thiamine HCL 100 MG TABLET PO (08:46)
[2023-12-12] MEDS: LORazepam 1 MG TABLET PO ×3 (08:46→21:10)
[2023-12-12] MEDS: Famotidine 20 MG TABLET PO ×2 (08:46→21:09)
[2023-12-12 12:00] VITALS: BP 118/60; PULSE 68; RESP 14; TEMP 37.2; O2SAT 98
--- NOTE | 2023-12-12 13:18 | PM.EVENT ---
Event Note Date of Service: 12/12/23 Event Note: Addiction consult placed for patient on unit Patient not engaging in interview with corrective therapist Please reconsult if patient open to meeting with Recovery team Time Spent With Patient Time: Total time managing care of this patient today ____ minutes.
[2023-12-12] MEDS: QUEtiapine Fumarate 100 MG TABLET PO (16:54)
[2023-12-12] MEDS: hydrOXYzine HCL 25 MG TABLET PO (16:54)
[2023-12-12] MEDS: chlorproMAZINE HCl 100 MG TABLET PO (17:29)
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
[2023-12-12] MEDS: chlorproMAZINE HCl 25 MG/ML AMPUL IM (17:55)
[2023-12-12] MEDS: traZODone HCL 50 MG TABLET PO (21:09)
[2023-12-12] MEDS: Lithium Carbonate ER 300 MG TABLET.ER PO (21:09)
[2023-12-13] MEDS: Folic Acid 1 MG TABLET PO (09:12)
[2023-12-13] MEDS: Multivitamin TABLET 1 TAB PO (09:12)
[2023-12-13] MEDS: chlorproMAZINE HCl 100 MG TABLET PO ×2 (09:13→17:28)
[2023-12-13] MEDS: Thiamine HCL 100 MG TABLET PO (09:13)
[2023-12-13] MEDS: Famotidine 20 MG TABLET PO ×2 (09:14→20:33)
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
[2023-12-13] MEDS: hydrOXYzine HCL 25 MG TABLET PO (17:28)
[2023-12-13] MEDS: OLANZapine 2.5 MG TABLET PO (17:28)
[2023-12-13] MEDS: QUEtiapine Fumarate 100 MG TABLET PO (18:10)
[2023-12-13] MEDS: chlorproMAZINE HCl 25 MG/ML AMPUL 50 MG IM (18:39)
[2023-12-13] MEDS: Lithium Carbonate ER 300 MG TABLET.ER PO (20:33)
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
[2023-12-14] MEDS: Thiamine HCL 100 MG TABLET PO (11:18)
[2023-12-14] MEDS: Famotidine 20 MG TABLET PO ×2 (11:18→20:32)
[2023-12-14] MEDS: Lithium Carbonate 300 MG TABLET 150 MG PO (11:18)
[2023-12-14] MEDS: Multivitamin TABLET 1 TAB PO (11:18)
[2023-12-14] MEDS: Folic Acid 1 MG TABLET PO (11:18)
[2023-12-14] MEDS: hydrOXYzine HCL 25 MG TABLET PO ×2 (11:23→17:23)
[2023-12-14] MEDS: chlorproMAZINE HCl 100 MG TABLET PO ×2 (11:23→20:37)
[2023-12-14] MEDS: OLANZapine 2.5 MG TABLET PO ×2 (11:23→20:37)
[2023-12-14] MEDS: QUEtiapine Fumarate 100 MG TABLET PO ×2 (12:44→17:23)
[2023-12-14] MEDS: chlorproMAZINE HCl 25 MG/ML AMPUL 50 MG IM (13:54)
[2023-12-14] MEDS: Lithium Carbonate ER 300 MG TABLET.ER 600 MG PO (20:32)
[2023-12-14] MEDS: traZODone HCL 50 MG TABLET PO (20:37)
[2023-12-15] MEDS: Multivitamin TABLET 1 TAB PO (10:52)
[2023-12-15] MEDS: chlorproMAZINE HCl 100 MG TABLET PO (10:52)
[2023-12-15] MEDS: Folic Acid 1 MG TABLET PO (10:52)
[2023-12-15] MEDS: Thiamine HCL 100 MG TABLET PO (10:53)
[2023-12-15] MEDS: Acetaminophen 325 MG TABLET 650 MG PO (10:53)
[2023-12-15 11:40] VITALS: BP 136/70
[2023-12-15] MEDS: OLANZapine 2.5 MG TABLET PO (11:40)
[2023-12-15] MEDS: hydrOXYzine HCL 25 MG TABLET PO (11:40)
[2023-12-15] MEDS: cloNIDine HCL 0.1 MG TABLET PO (11:40)
[2023-12-15] MEDS: QUEtiapine Fumarate 100 MG TABLET PO (11:40)
--- NOTE | 2023-12-15 16:45 | P.DS_ITS ---
DS: Providers Provider Date of Service: 12/15/23 Date of admission: 12/09/23 13:31 Date of discharge: 12/15/23 Primary care physician: Unknown Physician Admitting clinician: Maia Singer Attending physician on admission: Kirk Herron Consults: 12/09/23 17:08 Addiction Medicine Routine Consulting Provider: Addiction Covering Reason for consultation: Etoh use, cocaine, fentanyl, ativan use Has provider been notified: Yes Attending physician on discharge: Kirk Herron Discharging clinician: Maia Singer DS: Diagnosis Discharge Diagnosis (1) Bipolar II disorder: Status: Acute (2) PTSD (post-traumatic stress disorder): Status: Acute (3) Polysubstance abuse: Status: Acute DS: Medications Discharge Medications Home Medications: Previous Rx's ?Medication ?Instructions ?Recorded chlorpromazine 100 mg tablet 100 mg PO TID PRN 12/15/23 agitation/anxiety #0 tabs clonidine HCl 0.1 mg tablet 0.1 mg PO Q4H PRN moderate anxiety 12/15/23 #0 tabs famotidine 20 mg tablet 20 mg PO BID #0 tabs 12/15/23 folic acid 1 mg tablet 1 mg PO DAILY #0 tabs 12/15/23 hydroxyzine HCl 25 mg tablet 25 mg PO Q6H PRN Anxiety #0 tabs 12/15/23 lithium carbonate 300 mg 600 mg (2 x 300 mg) PO BEDTIME #0 12/15/23 tablet,extended release tabs olanzapine 2.5 mg tablet 2.5 mg PO TID PRN agitation #0 tabs 12/15/23 quetiapine 100 mg tablet 100 mg PO TID PRN anxiety/insomnia 12/15/23 #0 tabs thiamine mononitrate (vit B1) 100 100 mg PO DAILY #0 tabs 12/15/23 mg tablet trazodone 50 mg tablet 50 mg PO BEDTIME MRX1 PRN Insomnia 12/15/23 #0 tabs Mental Status Exam Mental Status Exam Patient Appearance: Disheveled and Malodorous Patient Orientation: Person, Place, Time and Situation Level of Consciousness: Awake and Appropriate Patient Behavior: Cooperative, Anxious and Good Eye Contact Mood Description: Depressed and Anxious Affect Description: Constricted Patient Cognition Impaired: No Ability to Follow Directions: Good Speech Pattern: Clear and Spontaneous Speech Hallucinations: None Delusions: Not Present Thought Process: Goal Oriented Thought Content: positive for [place] (on trauma; on boyfriend) and positive for Suicidal Ideation (denies) Depressive Symptoms: Sleeping More Than Usual Abnormal Motor Activity Signs and Symptoms: Psychomotor Retardation Judgement: Poor Data Data Completed and Pending Completed studies during hospitalization [Text1]: 12/09/23 12/09/23 12/09/23 00:48 01:41 15:03 WBC 6.2 RBC 4.59 Hgb 14.5 Hct 41.0 MCV 89.3 MCH 31.6 MCHC 35.4 H RDW 11.9 Plt Count 186 MPV 9.4 Immature Gran % (Auto) 0.2 Neut % (Auto) 49.3 Lymph % (Auto) 39.9 [place] % (Auto) 9.0 Eos % (Auto) 1.3 Baso % (Auto) 0.3 Lymph # (Auto) 2.5 [place] # (Auto) 0.6 Eos # (Auto) 0.1 Baso # (Auto) 0.0 Abs Immat Gran (auto) 0.01 Absolute Neuts (auto) 3.1 Absolute Nucleated RBC 0.000 Nucleated RBC % (auto) 0.0 Sodium 141 Potassium 3.5 Chloride 108 Carbon Dioxide 23 Anion Gap 14 BUN 10 Creatinine 0.70 Estim Creat Clear Calc 174.1 Estimated GFR > 60 Random Glucose 100 Calcium 9.7 Total Bilirubin 0.9 AST 10 ALT 10 Alkaline Phosphatase 56 Total Protein 7.2 Albumin 4.2 Beta HCG, Quant < 2 Urine Color Dark Yellow Urine Appearance Turbid Urine pH 6.0 Ur Specific [place] >= 1.030 H Urine Protein 30 (1+) H Urine Glucose (UA) Negative Urine Ketones Trace Urine Blood Large (3+) H Urine Nitrite Negative Ur Leukocyte Esterase Trace H Urine RBC >20 H Urine WBC 0-5 Ur Squamous Epith Cells 11-20 Other Crystals Present Urine Bacteria Trace Hyaline Casts 0-2 Urine Opiates Screen Not Detected Ur Buprenorphine Scrn Positive H Ur Oxycodone Screen Not Detected Urine Methadone Screen Not Detected Urine Fentanyl Screen POSITIVE H Ur Barbiturates Screen Not Detected Ur Phencyclidine Scrn Not Detected Ur Amphetamines Screen Not Detected U Benzodiazepines Scrn Not Detected Urine Cocaine Screen POSITIVE H U Marijuana (THC) Screen Not Detected Ethyl Alcohol < 10 DS: Summary Hospital Course Hospital Course: Admission to adult psychiatry for exacerbation of polysubstance use disorder (heroin, alcohol, crack, ativan,klonopin, xanax), Bipolar Disorder type II. Reports miscarriage 72 hours prior to admission which was evaluated prior to admission. Pt reports SIBS, need for detox and re-establishment of medications. Pt did not participate in much treatment, she used the admission to sleep, stating she could not safely sleep when homeless and needed an opportunity to sleep safely. She signed a three day notice and left precipitously stating she and her partner had a correction placement at [facility]. She also refused medication refills, stating her mother has her prescriptions and she is not in need of refills. Status at Discharge Functional status at discharge: independent ambulation Overall status at discharge: patient is progressing back to baseline Time Spent with Patient Time attestation: Total time managing care of this patient today ____ minutes. Time spent: Less than 30 minutes Discharge Plan Discharge Anticipated Discharge Date/Time: 12/15/23 14:00 Patient Disposition: Alf Discharge Diagnosis: PTSD Bipolar II Disorder Polysubstance Use Disorder Referrals: [facility] Intake [Other] - 1 Week (M-F 8am-8pm Sat 9am-5pm) [facility] [facility] Walk In Same Day Psyche and Therapy Intake [Other] - 1 Week (M-F 10am-12pm) Physician,Unknown J [Primary Care Provider] - 1 Week Discharge Medications: New clonidine HCl 0.1 mg Tablet 0.1 mg PO Q4H PRN (Reason: moderate anxiety) Qty: 0 0RF Protocol: Hold for SBP< HOLD for SBP < : 90 trazodone 50 mg Tablet 50 mg PO BEDTIME MRX1 PRN (Reason: Insomnia) Qty: 0 0RF chlorpromazine 100 mg Tablet 100 mg PO TID PRN (Reason: agitation/anxiety) Qty: 0 0RF lithium carbonate 300 mg Tablet Extended Release 600 mg PO BEDTIME Qty: 0 4RF olanzapine 2.5 mg Tablet 2.5 mg PO TID PRN (Reason: agitation) Qty: 0 0RF quetiapine 100 mg Tablet 100 mg PO TID PRN (Reason: anxiety/insomnia) Qty: 0 0RF famotidine 20 mg Tablet 20 mg PO BID Qty: 0 0RF folic acid 1 mg Tablet 1 mg PO DAILY Qty: 0 0RF hydroxyzine HCl 25 mg Tablet 25 mg PO Q6H PRN (Reason: Anxiety) Qty: 0 0RF thiamine mononitrate (vit B1) 100 mg Tablet 100 mg PO DAILY Qty: 0 0RF Discharge Orders: Discharge Order (Routine); Ordered 12/15/23 Ordered By: Maia Singer Diet: Advance to usual diet Activity on Discharge: As tolerated Stand Alone Forms: Patient Portal Discharge page, Community Support Print Language: Indonesian Care Plan Goals: Abstain from substance use Mood and Behavioral Stabilization Health Concerns: Abstain from substance use Mood and Behavioral Stabilization Plan of Treatment: Opal reports she has medications and refills which her mother is holding for her, therefore no prescriptions have been sent. She has requested a precipitous discharge, stating that she will go with her partner to [facility] and they have an opening for the c ouple. She acknowledged that she did not participate in treatment during the hospitalization and used her time to sleep as she is unable to get rest safely when on the street. Assessment: Denies SI, HI, AH, VH No sx of psychosis, paranoia or misty Pt requests to leave. Three day notice of intent was submitted. Discharge Date/Time: 12/15/23 13:32
== END 2023-12-15 13:32 | disposition home or self-care (01) | DRG 753 ==
LOC: HO.ED 12-09 09:23 → HO.PM5 12-09 15:21
PROVIDERS: Internal Medicine; Admitting Provider Psychiatry & Neurology Psychiatry; Emergency Provider Emergency Medicine Emergency Medical Services; Visit Provider Clinical Nurse Specialist Psychiatric/Mental Health, Adult
DX: F31.81 Bipolar II disorder (principal); R45.851 Suicidal ideations; F43.10 Post-traumatic stress disorder, unspecified; F17.210 Nicotine dependence, cigarettes, uncomplicated; F41.1 Generalized anxiety disorder; F19.10 Other psychoactive substance abuse, uncomplicated; Z91.52 Personal history of nonsuicidal self-harm; Z59.02 Unsheltered homelessness; Z71.6 Tobacco abuse counseling; Z79.899 Other long term (current) drug therapy
CPT/HCPCS: 36415; 80053; 80307; 81001; 84702; 85025; 99285; J3230; S9485

== ENCOUNTER → 2023-12-09 13:31 | Outpatient (BNV) | payer OTHER, SELFPAY | PROVIDERS: Admitting Provider Psychiatry & Neurology Psychiatry; Emergency Provider Emergency Medicine Emergency Medical Services; Visit Provider Clinical Nurse Specialist Psychiatric/Mental Health, Adult | DX: F31.81 Bipolar II disorder (principal); F19.10 Other psychoactive substance abuse, uncomplicated; F43.11 Post-traumatic stress disorder, acute | CPT/HCPCS: 90792; 99231; 99232; 99238 ==

== ENCOUNTER → 2023-12-09 13:31 | Outpatient (BNV) | payer OTHER, SELFPAY | PROVIDERS: Admitting Provider Psychiatry & Neurology Psychiatry; Emergency Provider Emergency Medicine Emergency Medical Services; Visit Provider Nurse Practitioner Psychiatric/Mental Health | DX: F10.20 Alcohol dependence, uncomplicated (principal); F19.10 Other psychoactive substance abuse, uncomplicated | CPT/HCPCS: 99499 ==

== ENCOUNTER 2024-08-10 15:52 | Emergency (ER) | payer MEDICAID, SELFPAY ==
[2024-08-10 15:57] VITALS: BP 163/110; PULSE 89; RESP 16; TEMP 37.1; O2SAT 97; BMI 38.0
[2024-08-10 16:05] VITALS: RESP 18
--- NOTE | 2024-08-10 16:52 | ED.PSYCH ---
HPI - Psych General Chief Complaint: Psychiatric Symptoms Stated Complaint: si,etoh Time Seen by Provider: 08/10/24 16:05 Source: patient and EMS Mode of arrival: EMS Limitations: no limitations History of Present Illness ED Provider: Annel Ba NP HPI Narrative: Patient is a 28-year-old female with past medical history of PTSD, bipolar disorder, polysubstance use disorder who presents emergency department via EMS for evaluation. She is coming from a or in the community voluntarily not on a [place] 12. She is endorsing situational suicidal ideations surrounding winter shelters closing as of 08/17/2024. She states ?I will kill myself if I wind up in a tent by myself I will kill myself, but I am not suicidal . She is requesting assistance with placement to respite as she feels that this would be most beneficial for her, she does not feel as though inpatient psych would be of great benefit for her, she states ?the medical staff are never very nice to me?. She endorses recent relapse on crack cocaine, reports sobriety for 3 weeks, but states that last night she has been 400 dollars and crack cocaine and subsequently drank today alcohol today as she was upset with herself. Does not endorse how much she had drank. She denies additional recreational drug usage. She does state that she has been off of her medications for quite a few months, previously was prescribed Seroquel, olanzapine, Thorazine, and lithium. Related Data Home Medications ?Medication ?Instructions ?Recorded ?Confirmed No Known Home Meds 08/10/24 08/10/24 Allergies Allergy/AdvReac Type Severity Reaction Status Date / Time No Known Allergies Allergy Verified 08/10/24 15:58 [No Known Allergies*] Review of Systems Review of Systems: Yes all other systems are reviewed and are negative PMFSH Past Medical History Attestation statement: The following information was validated with the patient. Source: old records reviewed Medical History PTSD (post-traumatic stress disorder) Social History Social History Household Members: None Housing: Homeless Do you presently have visiting nurse or other home services: No Unable to assess alcohol history related to: Refusing to respond Alcohol intake: current Alcohol intake frequency: 3 or more drinks per day Patient Tobacco Use Status: Current everyday Tobacco user Tobacco use type: Cigarette Cigarette Packs Per Day: 1 Cigarettes Per Day: 20.0 Smoked in Last 30 Days: Yes e-Cigarette/Vaping Use: Former Use Second Hand Smoke Exposure: Yes Use of substances other than those prescribed or required for medical reasons: Yes Substance Use Type: Crack/Cocaine Substance Use Frequency: Recent Binge Last Used Substance: Just Prior to Admission Advance Directives: No Advance Directives Information Provided: No Patient : No service: No Sexual orientation: Straight/Heterosexual Physical Exam Vital Signs: Vital Signs: Last Vital Signs Temp 8.5 F L 08/10/24 21:08 Pulse 80 08/10/24 21:08 Resp 16 08/10/24 21:08 BP 138/80 08/10/24 21:08 Pulse Ox 98 08/10/24 21:08 O2 Del Method Room Air 08/10/24 21:08 BMI result Body Mass Index 38.0 Appearance: Alert.?Oriented to person, place and time. No acute distress.?Normal affect. Eyes: Pupils equal, round and reactive to light.? ENT: Pharynx normal.?? Neck: Normal inspection.? Neck supple.?? CVS: Heart sounds normal. Normal heart rate and rhythm.? Pulses normal.?? Respiratory: No respiratory distress.? Lung sounds clear to auscultation bilaterally?? Abdomen: Soft and non-tender. Normoactive bowel sounds. Skin: Skin warm and dry.? Normal skin color.? Extremities: No lower extremity edema.? Neuro: Moves all extremities spontaneously. Sensation intact bilaterally. CN II-XII intact. No focal neuro deficits. Ambulates with normal steady gait. Course Reevaluation(s) Reevaluation #1: Patient was evaluated by care team once clinically sober, denying SI at this time, again only having endorsed situational thoughts earlier regarding her homelessness. She was requesting respite initially, she however declines at this time. Do not feel that she meets level of care for inpatient criteria, care team as well agrees with this. Advised refraining from polysubstance use. Discussed strict return precautions. Outpatient follow-up with primary providers. All questions answered. Medications Administered Discontinued Medications Generic Name Dose Route Start Last Admin Trade Name Freq PRN Reason Stop Dose Admin Lorazepam 2 mg 08/10/24 16:56 08/10/24 17:59 Lorazepam 1 Mg Tablet PO 08/10/24 16:57 Not Given ONCE ONE Lorazepam 2 mg 08/10/24 20:03 08/10/24 20:08 Lorazepam 1 Mg Tablet PO 08/10/24 20:04 2 mg ONCE ONE Administration Medical Decision Making Medical Decision Making [facility] Narrative: Patient is a 28-year-old female with past medical history of PTSD, bipolar disorder, polysubstance use disorder who presents emergency department acutely intoxicated, endorsing crack cocaine usage yesterday, and situational suicidal ideations surrounding her homelessness as per HPI. She offers no physical complaints at this time aside from feeling anxious, physical examination is benign. She will receive lorazepam for anxiety. Medical screening will be obtained including serum labs, and will have evaluation by care team for safe disposition planning. She will be placed in physician observation as per narrative below Differential Diagnosis Differential Diagnoses: The differential diagnosis associated with the presentation includes (See narrative above and below for further detail) Admission/Observation Consideration of admission/observation: Escalation of care including admission/observation considered Patient is being observed in the Emergency Department for depression , suicidal ideation, and anxiety. Observation time was started at 16:56 on 08/10/2024.?The patient is currently stable and non-toxic appearing. Observation is being initiated in the Emergency Department to allow time to help differentiate if the patient's depression, suicidal ideation, and anxiety is due to Substance Induced Mood Disorder and Anxiety versus Major Depressive Disorder, Bipolar Silva, Bipolar Depression, and Schizophrenia. The patient will receive frequent psychiatric assessments from the provider as well as from nursing staff. The patient will also be monitored for the need of PRN agitation medications such as Haldol, Ativan, and Benadryl. Consult Healthcare Provider Management of the patient was discussed with: Behavioral Health Provider (CARE team) Lab Data [facility] Lab Attestation statement: I reviewed the patient's lab results. CBC reveals no leukocytosis anemia or thrombocytopenia. Chemistries without acute pathology Urinalysis without evidence of infection or microscopic hematuria. Toxicology is positive for cocaine. Alcohol level 91 1930 (3 hours s/p initial evaluation) 08/10/24 19:30 08/10/24 19:30 Labs: Lab Results 08/10/24 08/10/24 Range/Units 16:39 19:30 WBC 8.6 (4.8-10.8) X10*3/uL RBC 5.25 (4.20-5.50) X10*6/uL Hgb 15.6 (12.0-16.0) g/dl Hct 46.0 (37.0-47.0) % MCV 87.6 (80.0-98.0) fL MCH 29.7 (27.0-33.0) pg MCHC 33.9 (31.0-35.0) g/dl RDW 11.9 (11.0-16.0) % Plt Count 254 D (160-400) X10*3/uL MPV 9.0 L (9.4-12.3) fL Immature Gran % (Auto) 0.2 (0.0-0.4) % Neut % (Auto) 55.2 (45-73) % Lymph % (Auto) 36.0 (20-40) % [place] % (Auto) 8.0 (2-11) % Eos % (Auto) 0.3 (0-4) % Baso % (Auto) 0.3 (0-2) % Lymph # (Auto) 3.1 (1.2-4.9) X10*3/uL [place] # (Auto) 0.7 (0.1-1.2) X10*3/uL Eos # (Auto) 0.0 (0.0-0.4) X10*3/uL Baso # (Auto) 0.0 (0.0-0.2) X10*3/uL Abs Immat Gran (auto) 0.02 (0.00-0.03) X10*3/uL Absolute Neuts (auto) 4.8 (2.0-8.3) x10*3/uL Absolute Nucleated RBC 0.000 (0.0-0.012) X10*3/uL Nucleated RBC % (auto) 0.0 (0.0-0.2) /100WBC Sodium 144 (135-145) mmol/L Potassium 3.7 (3.3-5.1) mmol/L Chloride 112 H (96-108) mmol/L Carbon Dioxide 23 (22-29) mmol/L Anion Gap 13 (12-20) BUN 14 (9-16) mg/dL Creatinine 0.64 (0.5-1.4) mg/dL Estim Creat Clear Calc 193.8 Estimated GFR > 60 Random Glucose 66 (60-115) mg/dL Calcium 9.2 (8.4-10.2) mg/dL Total Bilirubin 0.5 (0.0-1.0) mg/dL AST 19 (5-31) U/L ALT 17 (0-31) U/L Alkaline Phosphatase 71 (39-117) U/L Total Protein 7.4 (6.5-8.0) g/dL Albumin 4.4 (3.5-5.0) g/dL Beta HCG, Quant < 2 mIU/mL Urine Color Yellow Urine Appearance Cloudy Urine pH 6.0 (5.0-9.0) Ur Specific [place] 1.010 (1.005-1.025) Urine Protein Negative (Neg-Trace) mg/dL Urine Glucose (UA) Negative (Negative) mg/dL Urine Ketones Negative (Negative) mg/dL Urine Blood Negative (Negative) Urine Nitrite Negative (Negative) Ur Leukocyte Esterase Negative (Negative) Urine Opiates Screen Not Detected (Not Detect) Ur Buprenorphine Scrn Not Detected (Not Detect) ng/mL Ur Oxycodone Screen Not Detected (Not Detect) ng/mL Urine Methadone Screen Not Detected (Not Detect) ng/mL Urine Fentanyl Screen Not Detected (Not Detect) Ur Barbiturates Screen Not Detected (Not Detect) Ur Phencyclidine Scrn Not Detected (Not Detect) Ur Amphetamines Screen Not Detected (Not Detect) U Benzodiazepines Scrn Not Detected (Not Detect) [place] < 0.10 L (0.60-1.20) mmol/L Urine Cocaine Screen POSITIVE H (Not Detect) U Marijuana (THC) Screen Not Detected (Not Detect) Ethyl Alcohol 91 mg/dL Independent Historian Clinical information obtained from an independent historian. History obtained from or confirmed by: EMS External Record Review External record reviewed: Outpatient record Discharge Plan Discharge Clinical Impression: Polysubstance abuse, Suicidal ideation, Acute anxiety Patient Disposition: Home, Self-Care Additional Instructions: You were evaluated in the emergency department with reports of increasing anxiety, depression, and situation no suicidal ideations surrounding homelessness with upcoming closure of the [place] shelters as of 08/17/2024. Otherwise you denied having suicidal thoughts or intent to act on any of this. Once sober, you requested to be discharged from the emergency department, you were offered rest but as you initially requested but ultimately declined. Recommend that you refrain from substance use such as crack cocaine, alcohol, as this may exacerbate your symptoms. You may return to emergency department at any time with any new or worsening symptoms or concerns. If you would like to cut down or stop your alcohol use please consider calling our outpatient Addiction Treatment office:? [facility] (-[id number]) [address] [place] [address] [address] ? You have also been given a list of treatment providers in the area that can assist as well.? If you experience seizures, vomiting blood, black stools, falls, severe headache, chest pain, fevers, trouble breathing, hallucinations or any other concerns you need to call 911 or seek immediate care. Please stay hydrated. Prescriptions: No Action No Known Home Meds Referrals: Physician,Unknown J [Primary Care Provider] - Interventions: [place]-Suicide Risk Severity Scale Last Done: 08/10/24 16:06 ED Discharge Assessment Last Done: 08/10/24 21:08 Discharge Date/Time: 08/10/24 21:22 Print Language: Burkin[place]
[2024-08-10 16:58] LABS: Appearance Urine Cloudy; Color Urine Yellow; Glucose Urine UA Negative (Negative); Leukocyte Esterase Urine Negative (Negative); Nitrite Urine Negative (Negative); Urine Blood Negative (Negative); Urine Ketones Negative (Negative); Urine Protein Negative (Neg-Trace)
[2024-08-10 17:07] LABS: Amphetamine Screen Urine Not Detected (Not Detect); Barbiturates, Urine Not Detected (Not Detect); Benzodiazepines Screen Urine Not Detected (Not Detect); Buprenorphine Scr Not Detected (Not Detect); Cannabinoid Screen Urine Not Detected (Not Detect); Cocaine Screen Urine POSITIVE (Not Detect); Fentanyl, urine Not Detected (Not Detect); Methadone Screen, Urine Not Detected (Not Detect); Opiate Screen Urine Not Detected (Not Detect); Oxycodone Screen Urine Not Detected (Not Detect); Phencyclidine Screen Urine Not Detected (Not Detect)
--- NOTE | 2024-08-10 17:24 | PC.NURSE ---
patient is refusing blood draw, then turned over and went to bed
[2024-08-10 19:37] LABS: MANUAL DIFF FLAG NO
[2024-08-10 19:39] LABS: Basophils Percent Auto 0.3 % (0-2); Eosinophils Percent Auto 0.3 % (0-4); Hemoglobin 15.6 g/dl (12.0-16.0); Imm Gran Abs Auto 0.02 X10*3/uL (0.00-0.03); Imm Gran Pct Auto 0.2 % (0.0-0.4); Lymphocytes Absolute Auto 3.1 X10*3/uL (1.2-4.9); Mean Corpuscular HGB Conc 33.9 g/dl (31.0-35.0); Mean Corpuscular Hemoglobin 29.7 pg (27.0-33.0); Mean Corpuscular Volume 87.6 fL (80.0-98.0); Monocytes Absolute Auto 0.7 X10*3/uL (0.1-1.2); Neutrophils Absolute Auto 4.8 x10*3/uL (2.0-8.3); Neutrophils Percent Auto 55.2 % (45-73); Platelet Count 254 X10*3/uL (160-400); Red Blood Count 5.25 X10*6/uL (4.20-5.50); Red Cell Distribution Width 11.9 % (11.0-16.0); White Blood Count 8.6 X10*3/uL (4.8-10.8)
[2024-08-10 19:59] LABS: Lithium < 0.10 mmol/L (0.60-1.20)
--- NOTE | 2024-08-10 20:00 | PC.NURSE ---
t/w appears on unit and initially was refusing lab draw complaining about the temperature in room. patient has since complied w lab draw and requests medication for anxiety, t/w made request of provider.
[2024-08-10 20:04] LABS: Alanine Aminotransferase 17 U/L (0-31); Albumin Level 4.4 g/dL (3.5-5.0); Alkaline Phosphatase 71 U/L (39-117); Anion Gap 13 (12-20); Aspartate Amino Transferase 19 U/L (5-31); Bilirubin Total 0.5 mg/dL (0.0-1.0); Blood Urea Nitrogen 14 mg/dL (9-16); Calcium 9.2 mg/dL (8.4-10.2); Carbon Dioxide 23 mmol/L (22-29); Chloride 112 mmol/L (96-108); Creatinine Clr Calc Pharmacy 193.8; Estimated Glomerular Filt Rate > 60; Ethanol 91 mg/dL; Glucose Random 66 mg/dL (60-115); Potassium 3.7 mmol/L (3.3-5.1); Sodium 144 mmol/L (135-145); Total Protein 7.4 g/dL (6.5-8.0)
[2024-08-10] MEDS: LORazepam 1 MG TABLET 2 MG PO (20:08)
[2024-08-10 20:14] LABS: HCG Quantitative < 2 mIU/mL
[2024-08-10 21:08] VITALS: BP 138/80; PULSE 80; RESP 16; TEMP -13.1; TEMP 8.5; O2SAT 98
== END 2024-08-10 21:22 | disposition home or self-care (01) ==
PROVIDERS: Emergency Provider Emergency Medicine Emergency Medical Services
DX: F19.10 Other psychoactive substance abuse, uncomplicated (principal); R45.851 Suicidal ideations; F41.9 Anxiety disorder, unspecified
CPT/HCPCS: 36415; 80053; 80178; 80307; 81003; 84702; 85025; 99285; S9485